=== PATIENT | female | born 1950 | race Caucasian/White ===

== ENCOUNTER 2016-07-29 11:49 | Emergency (ER) | payer MEDICARE ==
[2016-07-29 11:58] VITALS: BMI 27.4
[2016-07-29 11:59] VITALS: TEMP 98.7; O2SAT 100
--- NOTE | 2016-07-29 12:09 | ED PDOC ---
Arrival/HPI - General Historian: Patient <Chuck Cardoza - Last Filed: 07/29/16 14:23> <Candelario Weiner - Last Filed: 07/29/16 14:40> - General Chief Complaint: Trauma Time Seen by Provider: 07/29/16 11:57 - History of Present Illness Narrative History of Present Illness (Text): 07/29/16 12:07 This is a 66 yo F with PMH of DM, HTN and HLD that presents with minor head trauma s/p a mechanical fall. She says she was walking in a [place] when she tripped on the side walk and fell forward, landing on her hands and hitting her head. No LOC, no antiplatelet or anticoagulants, no residual dizziness, visual changes or focal deficits. Has no other complaints. (Chuck Cardoza) Past Medical History - Provider Review Nursing Documentation Reviewed: Yes - Cardiac Hx Hypertension: Yes - Pulmonary Hx Tuberculosis: No - Neurological HX Cerebrovascular Accident: No Hx Seizures: No - Hematological/Oncological Hx Cancer: No - Musculoskeletal/Rheumatological Hx Musculoskeletal Disorders: Yes - Genitourinary/Gynecological Hx Sexually Transmitted Diseases: No - Psychiatric Hx Depression: Yes Hx Emotional Abuse: No Hx Physical Abuse: No Hx Substance Use: No - Past Surgical History Past Surgical History: Non-Contributing - Anesthesia Hx Anesthesia Reactions: No Hx Malignant Hyperthermia: No - Suicidal Assessment Feels Threatened In Home Enviroment: No <Chuck Cardoza - Last Filed: 07/29/16 14:23> Family/Social History - Physician Review Nursing Documentation Reviewed: Yes Family/Social History: No Known Family HX Hx Alcohol Use: No Hx Substance Use: No <Chuck Cardoza - Last Filed: 07/29/16 14:23> Allergies/Home Meds <Chuck Cardoza - Last Filed: 07/29/16 14:23> <Candelario Weinre - Last Filed: 07/29/16 14:40> Allergies/Adverse Reactions: Allergies No Known Allergies Allergy (Verified 11/26/12 07:06) Home Medications: Home Meds Medication Instructions Recorded Confirmed Borage Seed Oil/Eicosapentae 1,200 mg PO DAILY 11/26/12 06/05/16 [Nature's Blend Flaxseed, Fish & Borage Oils] Calcium Carbonate/Vitamin D3 1 tab PO DAILY 11/26/12 06/05/16 [Calcium with D3 600 mg-400 Iu] Cholecalciferol [Vitamin D3] 1,000 iu PO DAILY 11/26/12 06/05/16 Ezetimibe/Simvastatin [Vytorin 10 1 tab PO DAILY 11/26/12 06/05/16 mg-40 mg] Alprazolam [Xanax] 0.5 mg PO BID 07/16/13 06/05/16 Bupropion HCl [Bupropion HCl Xl] 150 mg PO DAILY 07/16/13 06/05/16 Glyburide [Glyburide] 5 mg PO BID 07/16/13 06/05/16 Metformin HCl [Metformin HCl] 1,000 mg PO BID 07/16/13 06/05/16 Olanzapine/Fluoxetine HCl [Symbyax 1 cap PO HS 07/16/13 06/05/16 25 mg-6 mg] Temazepam [Restoril] 30 mg PO HS 07/16/13 06/05/16 Review of Systems - Review of Systems Constitutional: Normal Eyes: Normal. absent: Vision Changes, Eye Pain ENT: Normal. absent: Tinnitus Respiratory: Normal. absent: SOB, Cough Cardiovascular: Normal. absent: Chest Pain, Palpitations Gastrointestinal: Normal. absent: Abdominal Pain, Nausea, Vomiting Genitourinary Female: Normal Musculoskeletal: Other (hand pain) Skin: Laceration Neurological: Normal. absent: Headache, Dizziness, Focal Weakness, Gait Changes , Speech Changes, Disequilibrium Endocrine: Normal Hemo/Lymphatic: Normal Psychiatric: Normal <Chuck Cardoza - Last Filed: 07/29/16 14:23> Physical Exam Vital Signs Reviewed: Yes Temperature: Afebrile Blood Pressure: Normal Pulse: Tachycardic Respiratory Rate: Normal Appearance: Positive for: Non-Toxic, Comfortable Pain Distress: Mild Mental Status: Positive for: Alert and Oriented X 3 - Systems Exam Head: Present: Laceration (over left eye, 2 cm) Pupils: Present: PERRL Extroacular Muscles: Present: EOMI Neck: Present: Normal Range of Motion. No: MIDLINE TENDERNESS Respiratory/Chest: Present: Clear to Auscultation, Good Air Exchange Cardiovascular: Present: Regular Rate and Rhythm, Normal S1, S2 Abdomen: Present: Normal Bowel Sounds. No: Tenderness, Distention Upper Extremity: Present: Other (tenderness of right thenar eminence ) Lower Extremity: Present: NORMAL PULSES, Neurovascularly Intact Neurological: Present: Speech Normal, Motor Func Grossly Intact Skin: Present: Warm, Dry Psychiatric: Present: Alert, Oriented x 3 <Chuck Cardoza - Last Filed: 07/29/16 14:23> Medical Decision Making <Chuck Cardoza - Last Filed: 07/29/16 14:23> <Candelario Weiner - Last Filed: 07/29/16 14:40> ED Course and Treatment: 07/29/16 12:15 66 yo with laceration over left eye and tenderness over right thenar eminence s/ p mechanical fall Plan: - CT head and maxilofacial - Xray of right hand - Tylenol - Tdap - Reassess and disposition 07/29/16 13:31 Wound/laceration repair to left eyebrow. Sterile procedure, 5-0 prolene, simple interrupted with local anesthesia. No complications and pt tolerated procedure well. Bacitracin dressings applied. Instructed to have stitches taken out in 7 days. 07/29/16 13:51 CT head and maxilofacial - negative for any bleed or fracture. 07/29/16 14:23 Hand x-ray - no apparent fractures Discussed results with pt. Instructed pt to follow up with PMD for suture removal in 7-10 days and to return to ED if not able to see PMD. Pt stable and comfortable with discharge home and f/u (Chuck Cardoza) Patient seen and examined with resident. Came up with treatment and disposition plan with resident. The patient is a 66 year old female who comes to the emergency department for evaluation after a mechanical fall. Patient tripped and fell forward hitting her head. Additional HPI details as noted by the resident. On physical examination, the patient is a 2cm laceration over her heft eye, tenderness over the right thenar eminence but has no focal neurological deficits. Maxillofacial CT ordered to rule out any fractures. Head CT ordered to rule out any intracranial hemorrhage. Right hand X-ray to rule out fracture. Patient given TDAP vaccine and Tylenol. Laceration was repaired by resident, see procedure note for additional information. Head CT shows a small right parietal scalp hematoma. Maxillofacial CT shows no acute maxillofacial or orbital fracture. Right hand X-ray negative for fracture. On reevaluation the patient feels better and is in no acute distress. Results and plan were discussed with the patient, who expresses understanding. Patient given the opportunity to ask question, all questions were answered and there is agreement with the plan to discharge the patient home. Patient is stable for discharge. Patient was instructed to follow up with PMD for suture removal or return if symptoms persist/worsen or new concerning symptoms arise. (Candelario Weiner) - RAD Interpretation Radiology Orders: 07/29/16 12:16 HEAD W/O CONTRAST [CT] Stat 07/29/16 12:17 MAXILLOFACIAL W/O CONTRAST [CT] Stat 07/29/16 13:35 HAND RIGHT 3 VIEWS [RAD] Stat - Medication Orders Current Medication Orders: Discontinued Medications Acetaminophen (Tylenol 325mg Tab) 650 mg PO STAT STA Stop: 07/29/16 12:18 Last Admin: 07/29/16 12:30 Dose: 650 mg Lidocaine HCl (Lidocaine 1% (20ml)) Confirm Administered Dose 20 ml .ROUTE .STK- MED ONE Stop: 07/29/16 13:06 Last Admin: 07/29/16 13:23 Dose: Tetanus/Reduced Diphtheria/Acell Pertussis (Boostrix Vaccine Inj) 0.5 ml IM .ONCE ONE Stop: 07/29/16 12:18 Last Admin: 07/29/16 12:33 Dose: 0.5 ml Procedure: Wound Repair - Time Performed Time Performed: 13:29 - Time Out Time Out: Side verified, Site verified, Sterile procedures obs. - Consent Obtained Consent obtained: Verbal - Performed by Performed by: Mid-level Provider - Indications Indication(s):: Laceration - Location Location:: Left, Eyebrow Shape:: Linear Dimensions Length cm: 2 Dimensions width cm: .25 Depth:: Epidermis - Anesthetic Technique Anesthetic Technique: Local Local/Regional Anesthetic:: Lidocaine 1% - Debris Debris:: None - Irrigated Irrigated with ml of normal saline: 100 - Complexity Complexity:: Simple (one layer) - Wound repair method Sutures:: # (3), Size (3-0), Type (prolene), Technique (simple interrupted) - Complications Complications: none - Patient tolerated procedure Patient Tolerated Procedure:: Well <Chuck Cadroza - Last Filed: 07/29/16 14:23> <Chuck Cardoza - Last Filed: 07/29/16 14:23> - PA / LEGAL COORDINATOR / Resident Statement / has reviewed & agrees with the documentation as recorded. MD/DO has examined the patient and agrees with the treatment plan. - Scribe Statement The provider has reviewed the documentation as recorded by the Scribe <Candelario Weiner - Last Filed: 07/29/16 14:40> - Scribe Statement Elinorjewell Hernandez Provider Scribe Attestation: All medical record entries made by the Scribe were at my direction and personally dictated by me. I have reviewed the chart and agree that the record accurately reflects my personal performance of the history, physical exam, medical decision making, and the department course for this patient. I have also personally directed, reviewed, and agree with the discharge instructions and disposition. (Candelario Weiner) Disposition/Present on Arrival - Present on Arrival Any Indicators Present on Arrival: Yes History of DVT/PE: No History of Uncontrolled Diabetes: Yes Urinary Catheter: No History Surgical Site Infection Following: None - Disposition Have Diagnosis and Disposition been Completed?: Yes Disposition Time: 14:27 Patient Plan: Discharge <Chuck Cardoza - Last Filed: 07/29/16 14:23> <Candelario Weiner - Last Filed: 07/29/16 14:40> - Disposition Diagnosis: Minor trauma, Laceration Disposition: HOME/ ROUTINE Patient Problems: Current Active Problems Problem Status Onset Laceration Acute Minor trauma Acute Condition: IMPROVED Discharge Instructions (ExitCare): Laceration (ED) Additional Instructions: You were evaluated for minor head trauma. Follow up with your primary care physician in 7 days for suture removal or return to ED if not bale to see PMD. Return to ED with any new or worsening symptoms. Referrals: Franny Shook MD [Primary Care Provider] - Follow up with primary
[2016-07-29] MEDS ORDERED: TDAP Vaccine 0.5 mL Syr IM ONE (12:17)
[2016-07-29] MEDS ORDERED: Lidocaine 1% Inj (20ml) ONE (13:05)
--- NOTE | 2016-07-29 13:05 | CT ---
PROCEDURE: CT HEAD WITHOUT CONTRAST. HISTORY: Mechanical fall COMPARISON: None available. TECHNIQUE: Axial computed tomography images were obtained through the head/brain without intravenous contrast. Radiation dose: Total exam DLP = 688.94 mGy-cm. This CT exam was performed using one or more of the following dose reduction techniques: Automated exposure control, adjustment of the mA and/or kV according to patient size, and/or use of iterative reconstruction technique. FINDINGS: HEMORRHAGE: No intracranial hemorrhage. BRAIN: Vernon-white matter differentiation is preserved. There is no mass, mass effect or abnormal extra-axial fluid collection. VENTRICLES: The ventricles are normal in size, shape and configuration. CALVARIUM: There is no calvarial fracture. There is a small right parietal scalp hematoma. Small fat density lesion in the left frontal scalp may represent a subcutaneous lipoma or sebaceous cyst. PARANASAL SINUSES: Unremarkable as visualized. No significant inflammatory changes. MASTOID AIR CELLS: Unremarkable as visualized. No inflammatory changes. OTHER FINDINGS: None. IMPRESSION: No acute intracranial abnormality. Small right parietal scalp hematoma.
--- NOTE | 2016-07-29 13:11 | CT ---
PROCEDURE: CT MAXILLOFACIAL BONES WITHOUT CONTRAST HISTORY: Swelling to left side of face s/p mechanical fall COMPARISON: None TECHNIQUE: Contiguous axial CT images of the maxillofacial bones were obtained. Coronal and sagittal reformats were generated. Radiation dose: Total exam DLP = 706.41 mGy-cm. This CT exam was performed using one or more of the following dose reduction techniques: Automated exposure control, adjustment of the mA and/or kV according to patient size, and/or use of iterative reconstruction technique. FINDINGS: NASAL BONES: The nasal bones are intact. ORBITS: No acute fracture. The globes are symmetric and within normal limits. PARANASAL SINUSES/ MASTOIDS: There is mild mucosal thickening in the maxillary sinuses. The remaining included paranasal sinuses are predominantly clear. The mastoid air cells are clear. MAXILLA: No acute fracture. MANDIBLE/ TEMPOROMANDIBULAR JOINTS: The mandible is within normal limits without evidence of fracture or bone destruction. The temporomandibular joints are normally located. SKULL BASE: Unremarkable. TEMPORAL BONES: Middle ears and mastoid grossly unremarkable. OTHER FINDINGS: None. IMPRESSION: No acute maxillofacial or orbital fracture.
[2016-07-29 14:02] VITALS: RESP 18
[2016-07-29 14:36] VITALS: BP 116/75; PULSE 89
--- NOTE | 2016-07-29 14:40 | RAD ---
PROCEDURE: Right Hand Radiographs. HISTORY: minor trauma, hand pain COMPARISON: None. FINDINGS: BONES: There is no acute fracture or bone destruction. Bone alignment and mineralization are normal. JOINTS: Normal. No osteoarthritic changes. SOFT TISSUES: Normal. OTHER FINDINGS: None. IMPRESSION: No acute fracture or dislocation.
== END 2016-07-29 14:50 | disposition home or self-care (01) ==
LOC: ED 11:49
DX: S01.112A Laceration without foreign body of left eyelid and periocular area, initial encounter (principal); W01.0XXA Fall on same level from slipping, tripping and stumbling without subsequent striking against object, initial encounter; Y92.480 Sidewalk as the place of occurrence of the external cause; Z23 Encounter for immunization

== ENCOUNTER 2016-08-06 11:26 | Emergency (ER) | payer MEDICARE ==
[2016-08-06 11:26] VITALS: BMI 27.4
[2016-08-06 11:32] VITALS: BP 112/73; PULSE 84; RESP 16; TEMP 98.1; O2SAT 97
--- NOTE | 2016-08-06 11:33 | ED PDOC ---
Arrival/HPI - General Time Seen by Provider: 08/06/16 11:27 Historian: Patient - History of Present Illness Narrative History of Present Illness (Text): 08/06/16 11:30 66 y/o female, here for the suture removal from the left eyebrow s/p sutured about 8 days ago. Wound healing well and dry, no fever or chills, no headache or night sweat, no dizziness, no other medical or psychological complaints. Past Medical History - Provider Review Nursing Documentation Reviewed: Yes - Cardiac Hx Hypertension: Yes - Pulmonary Hx Tuberculosis: No - Neurological HX Cerebrovascular Accident: No Hx Seizures: No - Hematological/Oncological Hx Cancer: No - Musculoskeletal/Rheumatological Hx Musculoskeletal Disorders: Yes - Genitourinary/Gynecological Hx Sexually Transmitted Diseases: No - Psychiatric Hx Depression: Yes Hx Emotional Abuse: No Hx Physical Abuse: No Hx Substance Use: No - Past Surgical History Past Surgical History: Non-Contributing - Anesthesia Hx Anesthesia Reactions: No Hx Malignant Hyperthermia: No - Suicidal Assessment Feels Threatened In Home Enviroment: No Family/Social History - Physician Review Nursing Documentation Reviewed: Yes Family/Social History: Unknown Family HX Smoking Status: Never Smoked Hx Alcohol Use: No Hx Substance Use: No Allergies/Home Meds Allergies/Adverse Reactions: Allergies No Known Allergies Allergy (Verified 08/06/16 11:29) Home Medications: Home Meds Medication Instructions Recorded Confirmed Borage Seed Oil/Eicosapentae 1,200 mg PO DAILY 11/26/12 06/05/16 [Nature's Blend Flaxseed, Fish & Borage Oils] Calcium Carbonate/Vitamin D3 1 tab PO DAILY 11/26/12 06/05/16 [Calcium with D3 600 mg-400 Iu] Cholecalciferol [Vitamin D3] 1,000 iu PO DAILY 11/26/12 06/05/16 Ezetimibe/Simvastatin [Vytorin 10 1 tab PO DAILY 11/26/12 06/05/16 mg-40 mg] Alprazolam [Xanax] 0.5 mg PO BID 07/16/13 06/05/16 Bupropion HCl [Bupropion HCl Xl] 150 mg PO DAILY 07/16/13 06/05/16 Glyburide [Glyburide] 5 mg PO BID 07/16/13 06/05/16 Metformin HCl [Metformin HCl] 1,000 mg PO BID 07/16/13 06/05/16 Olanzapine/Fluoxetine HCl [Symbyax 1 cap PO HS 07/16/13 06/05/16 25 mg-6 mg] Temazepam [Restoril] 30 mg PO HS 07/16/13 06/05/16 Review of Systems - Review of Systems Constitutional: absent: Fatigue, Fevers Eyes: absent: Vision Changes ENT: absent: Hearing Changes Respiratory: absent: SOB, Cough Cardiovascular: absent: Chest Pain Gastrointestinal: absent: Abdominal Pain, Nausea, Vomiting Skin: Other (suture wound). absent: Rash, Laceration, Abscess, Ulcer, Cellulitis Physical Exam Temperature: Afebrile Appearance: Positive for: Well-Appearing, Non-Toxic, Comfortable Pain Distress: None Mental Status: Positive for: Alert and Oriented X 3 - Systems Exam Head: Present: Atraumatic, Normocephalic Pupils: Present: PERRL Pharnyx: Present: Normal. No: ERYTHEMA, EXUDATE Respiratory/Chest: Present: Clear to Auscultation, Good Air Exchange. No: Respiratory Distress, Accessory Muscle Use Cardiovascular: Present: Regular Rate and Rhythm, Normal S1, S2 Abdomen: Present: Normal Bowel Sounds. No: Tenderness, Distention Neurological: Present: GCS=15, Speech Normal Skin: Present: Warm, Dry, Normal Color, Other (Lt. eyebow visible approx. 1.5cm with 3 sutures of ethelene sutuers, no cellulitis or streaking, no ulcers. ). No: Rashes Medical Decision Making ED Course and Treatment: 08/06/16 11:32 -3 sutures removed with success, no other suture noted, wound healing well and dry. -Discharge home with education on follow up with your own pmd within 2 days, return to the ER for any new or worsening signs or symptoms. - PA / ADMINISTRATIVE SUPPORT CLERK / Resident Statement MD/DO has reviewed & agrees with the documentation as recorded. Disposition/Present on Arrival - Present on Arrival Any Indicators Present on Arrival: No History of DVT/PE: No History of Uncontrolled Diabetes: Yes Urinary Catheter: No History of Decub. Ulcer: No History Surgical Site Infection Following: None - Disposition Have Diagnosis and Disposition been Completed?: Yes Diagnosis: Visit for suture removal Disposition: HOME/ ROUTINE Disposition Time: 11:33 Patient Plan: Discharge Condition: GOOD Additional Instructions: Discharge home with education on follow up with your own pmd within 2 days, return to the ER for any new or worsening signs or symptoms. Referrals: [facility] at [facility] [place] [Outside] - Follow up with primary Forms: WORK NOTE
== END 2016-08-06 11:40 | disposition home or self-care (01) ==
LOC: ED 11:26
DX: Z48.02 Encounter for removal of sutures (principal)

== ENCOUNTER 2017-03-01 15:47 | Observation (INO) | payer MEDICARE, OTHER ==
[2017-03-01 17:45] LABS: ALB/GLOB RATIO 1.3 (1.1-1.8); ALBUMIN 4.3 g/dL (3.0-4.8); ALT/SGPT 39 U/L (7-56); AST/SGOT 24 U/L (14-36); BASO # 0.03 K/mm3 (0.0-2.0); BASO % 0.5 % (0.0-3.0); BLOOD UREA NITROGEN 18 mg/dL (7-21); CALCIUM 10.4 mg/dL (8.4-10.5); EOS % 0.3 % (1.5-5.0); GFR AFRICAN-AMERICAN > 60; GFR NON-AFRICAN AMERICAN 55; GRAN # 3.22 (1.4-6.5); GRAN % 50.4 % (50.0-68.0); HEMOGLOBIN 14.7 g/dL (12.0-16.0); LIPASE 56 U/L (23-300); LYMPH # 2.6 (1.2-3.4); LYMPH % 41.3 % (22.0-35.0); MEAN CELL VOLUME 90.2 fl (80.0-105.0); MEAN CORPUSCULAR HEMOGLOBIN 29.5 pg (25.0-35.0); MEAN CORPUSCULAR HGB CONC 32.7 g/dl (31.0-37.0); MONO # 0.5 (0.1-0.6); MONO % 7.5 % (1.0-6.0); RBC 4.98 10^6/uL (3.5-6.1); RED CELL DISTRIBUTION WIDTH 13.3 % (11.5-14.5); WHITE BLOOD COUNT 6.4 10^3/ul (4.5-11.0)
[2017-03-01 17:56] LABS: TROPONIN I < 0.01 ng/mL
[2017-03-01 18:11] LABS: PH,URINE 5.5 (4.7-8.0); URINE BILIRUBIN NEGATIVE (NEGATIVE); URINE BLOOD TRACE-INTACT (NEGATIVE); URINE GLUCOSE (UA) >=1000 mg/dL (NEGATIVE); URINE LEUKOCYTE ESTERASE SMALL Leu/uL (NEGATIVE); URINE NITRATE POSITIVE (NEGATIVE); URINE PROTEIN NEGATIVE mg/dL (<30 mg/dL); URINE UROBILINOGEN 0.2 E.U./dL (<1 E.U./dL)
[2017-03-01 18:14] LABS: URINE APPEARANCE CLOUDY (CLEAR); URINE COLOR LIGHT YELLOW (YELLOW)
[2017-03-01 18:15] LABS: PROTHROMBIN TIME 12.1 SECONDS (9.4-12.5)
[2017-03-01 18:16] LABS: INR 1.06 (0.93-1.08); PARTIAL THROMBOPLASTIN TIME 27.3 Seconds (25.1-36.5)
[2017-03-01 18:58] LABS: URINE WBC 25 - 30 /hpf (0-6)
[2017-03-01 18:59] LABS: URINE BACTERIA MANY (NEG)
--- NOTE | 2017-03-01 19:11 | CT ---
EXAM: CT Head Without Intravenous Contrast EXAM DATE/TIME: 03/01/2017 4:38 PM CLINICAL HISTORY: The patient age is 67 years old and is female; Signs and symptoms; Dizziness Facility exam id and description: Ct heads head w/o contrast TECHNIQUE: Axial computed tomography images of the head/brain without intravenous contrast. All CT scans at this facility use one or more dose reduction techniques, viz.: automated exposure control; ma/kV adjustment per patient size (including targeted exams where dose is matched to indication; i.e. head); or iterative reconstruction technique. Coronal and sagittal reformatted images were created and reviewed. COMPARISON: CT - HEAD W/O CONTRAST 2016-07-29 12:32 FINDINGS: Brain: The white-freeman differentiation is preserved demonstrating no acute territorial type infarct. There is mild prominence of the ventricles and sulci, compatible with atrophy. No acute intracranial hemorrhage is seen. Midline shift: There is no midline shift. Ventricles: See above. Bones/joints: The calvarium demonstrates no evidence for a depressed fracture. Soft tissues: There is a subcentimeter loculation of fat or lipoma within the left frontal scalp Vasculature: There is atherosclerotic calcification of the cavernous internal carotid arteries. Sinuses: There is a dejon bullosa branch of the left middle nasal turbinate. There is mild mucosal thickening of the right sphenoid sinus. A mucus retention cyst or polyp is identified within a left posterior ethmoid air cell. Mastoid air cells: No mastoid effusion. Orbits: There is bilateral proptosis. IMPRESSION: 1. No acute intracranial hemorrhage or acute territorial type infarct. 2. Mild atrophy. 3. Additional CT findings described above.
--- NOTE | 2017-03-01 20:49 | ED PDOC ---
Arrival/HPI - General Chief Complaint: Trauma Time Seen by Provider: 03/01/17 16:37 Historian: Patient - History of Present Illness Narrative History of Present Illness (Text): 03/01/17 20:43 67-year-old female presents today with frequent falls complaining of dizziness and weakness and feeling as if she is going to pass out. Patient states she lives alone and does not feel comfortable being at home. Patient states every time she falls if she is not in the view of someone she is unable to get up and she is afraid that something bad is going to happen. She denies headache at present time. Patient denies abdominal pain. Denies nausea or vomiting. Denies chest pain or shortness of breath. Denies urinary symptoms. Denies bladder or bowel incontinence. Denies arthralgias. No other complaints Past Medical History - Provider Review Nursing Documentation Reviewed: Yes - Travel History Have you recently traveled outside [place] w/in the past 3 mons?: No - Infectious Disease Hx of Infectious Diseases: None - Reproductive Menopause: Yes - Cardiac Hx Hypertension: Yes - Pulmonary Hx Tuberculosis: No - Neurological HX Cerebrovascular Accident: No Hx Seizures: No - Endocrine/Metabolic Hx Diabetes Mellitus Type 2: Yes - Hematological/Oncological Hx Cancer: No - Musculoskeletal/Rheumatological Hx Musculoskeletal Disorders: Yes - Genitourinary/Gynecological Hx Sexually Transmitted Diseases: No - Psychiatric Hx Depression: Yes Hx Emotional Abuse: No Hx Physical Abuse: No Hx Substance Use: No - Past Surgical History Past Surgical History: Non-Contributing - Anesthesia Hx Anesthesia Reactions: No Hx Malignant Hyperthermia: No - Suicidal Assessment Feels Threatened In Home Enviroment: No Family/Social History - Physician Review Nursing Documentation Reviewed: Yes Family/Social History: Unknown Family HX Smoking Status: Never Smoked Hx Alcohol Use: No Hx Substance Use: No Allergies/Home Meds Allergies/Adverse Reactions: Allergies No Known Allergies Allergy (Verified 08/06/16 11:29) Home Medications: Home Meds Medication Instructions Recorded Confirmed Metformin HCl [Metformin HCl] 1,000 mg PO BID 07/16/13 03/01/17 Canagliflozin [Invokana] 300 mg PO DAILY 03/01/17 03/01/17 Carvedilol [Coreg] 12.5 mg PO BID 03/01/17 03/01/17 Dulaglutide [Trulicity] 1.5 mg SC QWK 03/01/17 03/01/17 Ezetimibe/Simvastatin 1 each PO DAILY 03/01/17 03/01/17 [Ezetimibe-Simvastatin 10-40 mg] Olanzapine/Fluoxetine HCl 1 cap PO HS 03/01/17 03/01/17 [Olanzapine and Fluoxetine 50 mg-12 mg] buPROPion [Bupropion HCl] 300 mg PO DAILY 03/01/17 03/01/17 Review of Systems - Review of Systems Constitutional: absent: Fatigue, Fevers Eyes: absent: Vision Changes, Photophobia, Eye Pain ENT: absent: Sinus Congestion Respiratory: absent: SOB, Cough Cardiovascular: absent: Chest Pain, Palpitations Gastrointestinal: absent: Abdominal Pain, Nausea, Vomiting Genitourinary Female: absent: Dysuria, Frequency, Hematuria, Vaginal Bleeding, Vaginal Discharge Musculoskeletal: absent: Arthralgias, Back Pain, Neck Pain Skin: absent: Rash, Pruritis Neurological: Dizziness. absent: Headache Psychiatric: absent: Anxiety, Depression, Suicidal Ideation Physical Exam Vital Signs Reviewed: Yes Vital Signs Temp Pulse Resp BP Pulse Ox 03/01/17 17:00 78 18 132/79 98 03/01/17 16:01 98.6 F 90 18 115/80 99 Temperature: Afebrile Blood Pressure: Normal Pulse: Regular Respiratory Rate: Normal Appearance: Positive for: Well-Appearing, Non-Toxic, Comfortable Pain Distress: None Mental Status: Positive for: Alert and Oriented X 3 Finger Stick Blood Glucose: 133 - Systems Exam Head: Present: Atraumatic Pupils: Present: PERRL Extroacular Muscles: Present: EOMI Mouth: Present: Moist Mucous Membranes Neck: Present: Normal Range of Motion, Trachea Midline. No: MIDLINE TENDERNESS , Paraspinal Tenderness Respiratory/Chest: Present: Clear to Auscultation, Good Air Exchange. No: Respiratory Distress, Accessory Muscle Use Cardiovascular: Present: Regular Rate and Rhythm, Normal S1, S2. No: Murmurs Abdomen: Present: Normal Bowel Sounds. No: Tenderness, Distention, Peritoneal Signs, Rebound, Guarding Back: Present: Normal Inspection. No: Midline Tenderness, Paraspinal Tenderness Upper Extremity: Present: Normal ROM Lower Extremity: Present: Normal ROM Neurological: Present: GCS=15, Speech Normal, Motor Func Grossly Intact, Normal Sensory Function, Normal Cerebellar Funct, Gait Normal Skin: Present: Warm, Dry, Normal Color. No: Rashes Psychiatric: Present: Alert, Oriented x 3 Medical Decision Making ED Course and Treatment: 03/01/17 20:53 67-year-old female presents today with it frequent falls dizziness and near syncope. CBC within normal limits CMP is within normal limits Troponin within normal limits EKG shows normal sinus rhythm at [address] elevations PT INR within normal limits PTT within normal limits Urinalysis: Positive nitrate positive leukocytes Patient is without neuro deficits. Complaining of frequent falls and dizziness and near syncope Case was discussed with Dr. Aceves covering for Dr. Haywood: Discussed the case in depth. He advised admitting observational status to the hospitalist Blood and urine cultures are pending Rocephin given IV Aspirin given by mouth Case was discussed with the manager medical in depth Case discussed with Dr. Junaid marroquin :accepts observational status admission to telemetry for near syncope urinary tract infection. impression;near syncope, UTI admit observational status to tele. 03/01/17 21:23 - Lab Interpretations Lab Results: 03/01/17 17:20 03/01/17 17:20 Lab Results 03/01/17 17:48: Urine Color Light yellow, Urine Appearance Cloudy, Urine pH 5.5 , Ur Specific [place] 1.015, Urine Protein Negative, Urine Glucose (UA) >=1000, Urine Ketones Negative, Urine Blood Trace-intact H, Urine Nitrate Positive H, Urine Bilirubin Negative, Urine Urobilinogen 0.2, Ur Leukocyte Esterase Small H , Urine RBC 5 - 10, Urine WBC 25 - 30, Ur Epithelial Cells 10 - 12, Urine Bacteria Many, Urine Other Fiber 03/01/17 17:20: WBC 6.4, RBC 4.98, Hgb 14.7, Hct 44.9, MCV 90.2, MCH 29.5, MCHC 32.7, RDW 13.3, Plt Count 239, MPV 10.0, Gran % 50.4, Lymph % (Auto) 41.3 H, [place] % (Auto) 7.5 H, Eos % (Auto) 0.3 L, Baso % (Auto) 0.5, Gran # 3.22, Lymph # 2.6, [place] # 0.5, Eos # 0.0, Baso # 0.03 03/01/17 17:20: Sodium 141, Potassium 4.3, Chloride 101, Carbon Dioxide 27, Anion Gap 17, BUN 18, Creatinine 1.0, Est GFR ( Amer) > 60, Est GFR (Non- Af Amer) 55, Random Glucose 138 H, Calcium 10.4, Total Bilirubin 0.5, AST 24, ALT 39, Alkaline Phosphatase 78, Lactate Dehydrogenase 367, Total Creatine Kinase 78, Troponin I < 0.01, Total Protein 7.5, Albumin 4.3, Globulin 3.2, Albumin/Globulin Ratio 1.3, Lipase 56 03/01/17 17:20: PT 12.1, INR 1.06, APTT 27.3 - RAD Interpretation Radiology Orders: 03/01/17 16:38 HEAD W/O CONTRAST [CT] Stat CHEST PORTABLE [RAD] Stat Disposition/Present on Arrival - Present on Arrival Any Indicators Present on Arrival: Yes History of DVT/PE: No History of Uncontrolled Diabetes: Yes Urinary Catheter: No History of Decub. Ulcer: No History Surgical Site Infection Following: None - Disposition Have Diagnosis and Disposition been Completed?: Yes Diagnosis: Near syncope, Urinary tract infection Disposition: HOSPITALIZED Disposition Time: 20:57 Patient Plan: Observation Condition: FAIR Forms: [employer] (Icelandic)
[2017-03-01] MEDS ORDERED: cefTRIAXone 1 gm 1 GM/100 ML BAG IVPB STA (20:57)
[2017-03-01 23:09] LABS: FREE T4 1.13 ng/dL (0.78-2.19)
--- NOTE | 2017-03-01 23:50 | CP.PCM.HP ---
<Sourav Delong - Last Filed: 03/02/17 02:02> History of Present Illness - History of Present Illness History of Present Illness: Mrs. Lockwood is a 67 year old female with a past medical history significant for DM2, HLD, HTN, and depression who presents with several weeks of feeling lightheaded, dizzy and having frequent falls. Patient reports that for several weeks she has noticed that she has fallen 10-15 times, hitting her head on more than one occasion. She reports that she has fallen "a couple of times" because she either tripped or lost her balance but that most of the time she experiences the feeling of being lightheaded and dizzy prior to her falling. She denies any aggravating factors but does endorse that she suspects that it may be one of her DM medications. She reports that she takes her BS at home and that they have all been above 100. She denies any fever, chills, headache, changes in her vision, tinnitus, ear pain/discharge, rhinorrhea, epistaxis, sore throat, neck pain/stiffness, chest pain, palpitations, LE edema, SOB, cough , wheezing, hemoptysis, abdominal pain, N/V, diarrhea, constipation, melena, hematochezia, burning/pain with urination, urinary frequency, vaginal bleeding/ discharge, rashes, numbness/tingling/weakness of any extremity, recent travel or any sick contacts. PMH: DM2, HLD, HTN, and depression PSH: (1986) Family History: Father-DM2, and CAD; Mother: DM2 Social History: Denies tobacco, alcohol or illicit drug use; lives alone in second story apartment with no elevator Allergies: NKDA Home Medications: As per MAR Present on Admission - Present on Admission Any Indicators Present on Admission: No Review of Systems - Review of Systems Review of Systems: As stated in HPI, otherwise negative Past Patient History - Infectious Disease Hx of Infectious Diseases: None - Past Social History Smoking Status: Never Smoked - CARDIAC Hx Hypertension: Yes - PULMONARY Hx Tuberculosis: No - NEUROLOGICAL HX Cerebrovascular Accident: No Hx Seizures: No - ENDOCRINE/METABOLIC Hx Diabetes Mellitus Type 2: Yes - HEMATOLOGICAL/ONCOLOGICAL Hx Cancer: No - MUSCULOSKELETAL/RHEUMATOLOGICAL Hx Musculoskeletal Disorders: Yes - GENITOURINARY/GYNECOLOGICAL Hx Sexually Transmitted Disorders: No - PSYCHIATRIC Hx Depression: Yes Hx Emotional Abuse: No Hx Physical Abuse: No Hx Substance Use: No - SURGICAL HISTORY Hx Surgeries: Yes - ANESTHESIA Hx Anesthesia Reactions: No Hx Malignant Hyperthermia: No Meds Allergies/Adverse Reactions: Allergies Allergy/AdvReac Type Severity Reaction Status Date / Time No Known Allergies Allergy Verified 03/02/17 16:06 Physical Exam - Constitutional Appears: Non-toxic, No Acute Distress - Head Exam Head Exam: ATRAUMATIC, NORMAL INSPECTION, NORMOCEPHALIC - Eye Exam Eye Exam: EOMI, Normal appearance, PERRL. absent: Conjunctival injection, Nystagmus, Periorbital swelling, Periorbital tenderness, Scleral icterus Pupil Exam: NORMAL ACCOMODATION, PERRL. absent: Fixed, Irregular, Miosis, Mydriatic, Unequal - ENT Exam ENT Exam: Mucous Membranes Moist, Normal Exam, Normal External Ear Exam, Normal Oropharynx. absent: Mucous Membranes Dry Additional comments: [place]-Hallpike Maneuver negative - Neck Exam Neck exam: Positive for: Full Rom, Normal Inspection. Negative for: Lymphadenopathy, Meningismus, Tenderness, Thyromegaly - Respiratory Exam Respiratory Exam: Clear to Auscultation Bilateral, NORMAL BREATHING PATTERN. absent: Accessory Muscle Use, Chest Wall Tenderness, Decreased Breath Sounds, Prolonged Expiratory Phase, Rales, Rhonchi, Wheezes, Respiratory Distress, Stridor - Cardiovascular Exam Cardiovascular Exam: REGULAR RHYTHM, RRR, +S1, +S2. absent: Bradycardia, Tachycardia, Clicks, Diastolic murmur, Gallop, Irregular Rhythm, JVD, Rubs, +S4 , Systolic Murmur - GI/Abdominal Exam GI & Abdominal Exam: Normal Bowel Sounds, Soft. absent: Bruit, Diminished Bowel Sounds, Distended, Firm, Guarding, Hernia, Hyperactive Bowel Sounds, Hypoactive Bowel Sounds, Mass, Organomegaly, Pulsatile Mass, Rebound, Rigid, Tenderness - Extremities Exam Extremities exam: Positive for: full ROM, normal capillary refill, normal inspection, pedal pulses present. Negative for: calf tenderness, joint swelling , pedal edema, tenderness - Back Exam Back exam: FULL ROM, NORMAL INSPECTION. absent: CVA tenderness (L), CVA tenderness (R), muscle spasm, paraspinal tenderness, rash noted, tenderness, vertebral tenderness - Neurological Exam Neurological exam: Alert, CN II-XII Intact, Oriented x3 - Psychiatric Exam Psychiatric exam: Normal Affect, Normal Mood - Skin Skin Exam: Dry, Intact, Normal Color, Warm Results - Vital Signs Recent Vital Signs: Last Vital Signs Temp 98.6 F 03/01/17 16:01 Pulse 80 03/01/17 22:38 Resp 18 03/01/17 22:38 BP 101/59 L 03/01/17 22:38 Pulse Ox 98 03/01/17 22:38 - Labs Result Diagrams: 03/01/17 17:20 03/01/17 17:20 Labs: Laboratory Results - last 24 hr 03/01/17 22:34 POC Glucose (mg/dL) 165 H Assessment & Plan - Assessment and Plan (Free Text) Assessment: 67 year old female with a past medical history significant for DM2, HLD, HTN, and depression who presents with several weeks of feeling lightheaded, dizzy and having frequent falls. Patient had CT head done in ED that showed no acute abnormalities but was found to have a UTI on UA with positive urine nitrate, LE , WBC and bacteria. Plan: 1. Frequent Falls with dizziness and lightheadedness -CT Head was negative for any acute processes -[place]-Hallpike Maneuver negative -EKG showing NSR at 81bpm -NS at 100mls/hr -Thyroid studies and Hemoglobin A1C pending -Carotid U/S and Echo pending -Orthostatic Vital signs pending -High fall risk precautions and OOB with assistance -PT/OT eval -SW/CM for discharge planning 2. UTI -UA positive for nitrates, LE, WBC and bacteria -Rocephin 1gm IVPB daily -ID consult 3. History of DM2 -SSI Low and Accuchecks ACHS -Heart Healthy Carbohydrate Consistent Diet 4. History of HTN -Continue home Coreg 5. History of HLD -Continue home Zetia and Lipitor GI Prophylaxis: Protonix DVT Prophylaxis: SCD's Patient seen and case discussed with attending, Dr. Riaz Smith. - Date & Time Date: 03/02/17 Time: 00:02 <Riaz Smith - Last Filed: 03/03/17 06:32> Results - Vital Signs Recent Vital Signs: Last Vital Signs Temp 98.5 F 03/03/17 03:01 Pulse 82 03/03/17 03:01 Resp 18 03/03/17 03:01 BP 100/63 01/09/18 03:01 Pulse Ox 98 03/03/17 03:01 - Labs Result Diagrams: 03/02/17 05:30 03/02/17 05:30 Labs: Laboratory Results - last 24 hr 03/02/17 03/02/17 03/02/17 05:30 08:46 08:46 Sodium 139 Potassium 4.2 Chloride 105 Carbon Dioxide 24 Anion Gap 15 BUN 15 Creatinine 0.7 Est GFR ( Amer) > 60 Est GFR (Non-Af Amer) > 60 POC Glucose (mg/dL) Random Glucose 131 H Hemoglobin A1c 7.0 H Calcium 9.7 Total Bilirubin 0.5 AST 30 ALT 32 Alkaline Phosphatase 70 Total Protein 6.8 Albumin 3.8 Globulin 3.1 Albumin/Globulin Ratio 1.2 Free T4 1.17 TSH 3rd Generation 1.83 03/02/17 03/02/17 03/03/17 12:16 16:56 00:14 Sodium Potassium Chloride Carbon Dioxide Anion Gap BUN Creatinine Est GFR ( Amer) Est GFR (Non-Af Amer) POC Glucose (mg/dL) 242 H 156 H 156 H Random Glucose Hemoglobin A1c Calcium Total Bilirubin AST ALT Alkaline Phosphatase Total Protein Albumin Globulin Albumin/Globulin Ratio Free T4 TSH 3rd Generation
[2017-03-02] MEDS: Insulin Reg-LOW-Coverage SC SCH ×4 (00:17→16:58)
[2017-03-02] MEDS: Sodium Chloride 0.9% 1,000 ML IV SCH ×2 (00:18→10:15)
[2017-03-02 06:05] LABS: BASO # 0.02 K/mm3 (0.0-2.0); BASO % 0.5 % (0.0-3.0); EOS % 0.7 % (1.5-5.0); GRAN # 2.39 (1.4-6.5); GRAN % 54.4 % (50.0-68.0); HEMOGLOBIN 14.2 g/dL (12.0-16.0); LYMPH # 1.6 (1.2-3.4); LYMPH % 36.9 % (22.0-35.0); MEAN CELL VOLUME 89.7 fl (80.0-105.0); MEAN CORPUSCULAR HEMOGLOBIN 29.3 pg (25.0-35.0); MEAN CORPUSCULAR HGB CONC 32.6 g/dl (31.0-37.0); MONO # 0.3 (0.1-0.6); MONO % 7.5 % (1.0-6.0); RBC 4.85 10^6/uL (3.5-6.1); RED CELL DISTRIBUTION WIDTH 13.3 % (11.5-14.5); WHITE BLOOD COUNT 4.4 10^3/ul (4.5-11.0)
[2017-03-02 07:12] LABS: ALB/GLOB RATIO 1.2 (1.1-1.8); ALBUMIN 3.8 g/dL (3.0-4.8); ALT/SGPT 32 U/L (7-56); AST/SGOT 30 U/L (14-36); BLOOD UREA NITROGEN 15 mg/dL (7-21); CALCIUM 9.7 mg/dL (8.4-10.5); GFR AFRICAN-AMERICAN > 60; GFR NON-AFRICAN AMERICAN > 60
--- NOTE | 2017-03-02 09:05 | RAD ---
HISTORY: Dizziness. COMPARISON: 07/16/2013 FINDINGS: LUNGS: No active pulmonary disease. PLEURA: No significant pleural effusion identified, no pneumothorax apparent. CARDIOVASCULAR: No radiographic findings to suggest acute or significant cardiovascular disease. OSSEOUS STRUCTURES: No significant abnormalities. VISUALIZED UPPER ABDOMEN: Normal. OTHER FINDINGS: Skin fold should not be mistaken for left pneumothorax. IMPRESSION: No active disease. BMD changes compared to the prior study
[2017-03-02 09:17] LABS: FREE T4 1.17 ng/dL (0.78-2.19)
[2017-03-02] MEDS: cefTRIAXone 1 gm 1 GM/100 ML BAG IVPB SCH (09:30)
--- NOTE | 2017-03-02 11:02 | CP.PCM.PN ---
<Jorge Luis Rojas - Last Filed: 03/02/17 17:33> Subjective - Date & Time of Evaluation Date of Evaluation: 03/02/17 Time of Evaluation: 06:00 - Subjective Subjective: Patient seen and evaluated bedside. patient denies any complaints. Patient denies fever, sore throat, lightheadedness, chest pain, shortness of breath or any other complaints. patient was hungry and wanted breakfast. Objective - Vital Signs/Intake and Output Vital Signs (last 24 hours): Temp Pulse Resp BP Pulse Ox 98.6 F 86 18 102/67 98 03/01/17 16:01 03/02/17 09:31 03/01/17 22:38 03/02/17 09:31 03/01/17 22:38 - Medications Medications: Current Medications Atorvastatin Calcium (Lipitor) 20 mg PO DAILY [facility] Last Admin: 03/02/17 09:31 Dose: 20 mg Carvedilol (Coreg) 12.5 mg PO BID [facility] Last Admin: 03/02/17 09:31 Dose: 12.5 mg Ezetimibe (Zetia) 10 mg PO DAILY [facility] Last Admin: 03/02/17 09:31 Dose: 10 mg Ceftriaxone Sodium (Rocephin 1 Gram Ivpb) 1 gm in 100 mls @ 100 mls/hr IVPB DAILY [facility] PRN Reason: Protocol Last Admin: 03/02/17 09:30 Dose: 100 mls/hr Sodium Chloride (Sodium Chloride 0.9%) 1,000 mls @ 100 mls/hr IV .Q10H [facility] Last Admin: 03/02/17 10:15 Dose: 100 mls/hr Insulin Human Regular (Humulin R Low) 0 units SC ACHS [facility] PRN Reason: Protocol Last Admin: 03/02/17 08:07 Dose: Not Given Pantoprazole Sodium (Protonix Inj) 40 mg IVP DAILY [facility] Last Admin: 03/02/17 09:31 Dose: 40 mg - Labs Labs: 03/02/17 05:30 03/02/17 05:30 PT 12.1 SECONDS (9.4-12.5) 03/01/17 17:20 INR 1.06 (0.93-1.08) 03/01/17 17:20 APTT 27.3 Seconds (25.1-36.5) 03/01/17 17:20 - Constitutional Appears: Non-toxic, No Acute Distress - Head Exam Head Exam: ATRAUMATIC, NORMAL INSPECTION, NORMOCEPHALIC - Eye Exam Eye Exam: EOMI, Normal appearance, PERRL - ENT Exam ENT Exam: Mucous Membranes Moist, Normal Exam - Neck Exam Neck Exam: Full ROM, Normal Inspection - Respiratory Exam Respiratory Exam: Clear to Ausculation Bilateral, NORMAL BREATHING PATTERN - Cardiovascular Exam Cardiovascular Exam: REGULAR RHYTHM, +S1 - GI/Abdominal Exam GI & Abdominal Exam: Soft - Extremities Exam Extremities Exam: Normal Inspection - Neurological Exam Neurological Exam: Alert, Awake, Oriented x3 Assessment and Plan - Assessment and Plan (Free Text) Assessment: 67 year old female with a past medical history significant for DM2, HLD, HTN, and depression who presents with several weeks of feeling lightheaded, dizzy and having frequent falls. Patient had CT head done in ED that showed no acute abnormalities but was found to have a UTI on UA with positive urine nitrate, LE , WBC and bacteria. Plan: Plan: 1. Frequent Falls with dizziness and lightheadedness -CT Head was negative for any acute processes -[place]-Hallpike Maneuver negative -EKG showing NSR at 81bpm -NS at 100mls/hr -TSH: 2.54 normal, A1C pending -Carotid U/S: mild smooth homogenous plaque noted at the carotid bifurcations bilaterally, bilateral 0-19 percemt proximal ICA stenoses -echo pending -Orthostatic Vital signs: lyin/67, sittin/74, standin/75: does not appear to be orthostatic in nature -High fall risk precautions and OOB with assistance -PT/OT eval -SW/CM for discharge planning 2. UTI -UA positive for nitrates, LE, WBC and bacteria -Rocephin 1gm IVPB daily -ID consult, continue rocephin pending blood cx 3. History of DM2 -SSI Low and Accuchecks ACHS -Heart Healthy Carbohydrate Consistent Diet 4. History of HTN -Continue home Coreg 5. History of HLD -Continue home Zetia and Lipitor GI Prophylaxis: Protonix DVT Prophylaxis: SCD's <Leo Martinez - Last Filed: 03/03/17 17:02> Objective - Vital Signs/Intake and Output Vital Signs (last 24 hours): Temp Pulse Resp BP Pulse Ox 97.8 F 64 18 105/63 97 03/03/17 07:30 03/03/17 11:26 03/03/17 07:30 03/03/17 11:26 03/03/17 07:30 Intake and Output: 03/03/17 03/03/17 06:59 18:59 Intake Total 800 800 Balance 800 800 - Labs Labs: 03/02/17 05:30 03/03/17 10:20 PT 12.1 SECONDS (9.4-12.5) 03/01/17 17:20 INR 1.06 (0.93-1.08) 03/01/17 17:20 APTT 27.3 Seconds (25.1-36.5) 03/01/17 17:20 Attending/Attestation - Attestation I have personally seen and examined this patient.: Yes I have fully participated in the care of the patient.: Yes I have reviewed all pertinent clinical information, including history, physical exam and plan: Yes Notes (Text): 03/03/17 16:56 Patient was seen and examined with medical donation professional. Agreed with resident assessment and plan. 67 yrs F with a PMH of DM2, HLD, HTN, and depression was admitted with H/O of fall at home, found to have UTI.Patient was having light headiness and dizziness while standing, suggestive of orthostatic hypotension.Patient symptoms did improve after IV hydration.She is afebrile and is ambulatory.She will be discharged home with oral antibiotics for UTI and will follow up with PCP.She was given education about orthostatic hypotension and how to start ambulation to decrease her risk of fall in future. Management plan was discussed in detail with patient Education was provided.
--- NOTE | 2017-03-02 11:56 | US ---
PROCEDURE: Bilateral carotid artery duplex ultrasound HISTORY: Carotid stenosis dizziness PHYSICIAN(S): Manolo Martinez MD. TECHNIQUE: Duplex sonography and color-flow Doppler were used to evaluate the carotid bifurcations and limited segments of the vertebral arteries bilaterally. FINDINGS: There is mild smooth heterogeneous plaque noted at the carotid bifurcations bilaterally. The peak systolic velocity in the proximal right internal carotid artery is 74 cm/sec. This corresponds to a 0-19 percent proximal right ICA stenosis. Normal systolic velocities are noted in the proximal right external carotid artery. There is antegrade flow in the right vertebral artery. The peak systolic velocity in the proximal left internal carotid artery is 80 cm/sec. This corresponds to a 0-19 percent proximal left ICA stenosis. Normal systolic velocities are noted in the proximal left external carotid artery. There is antegrade flow in the dominant left vertebral artery. IMPRESSION: 1. Bilateral 0-19 percent proximal ICA stenoses. 2. Antegrade flow in both vertebral arteries.
[2017-03-02] MEDS ORDERED: Insulin Regular 1 UNITS/0.01 ML ML ONE (12:28)
--- NOTE | 2017-03-02 13:42 | CP.PCM.CON ---
History of Present Illness - History of Present Illness History of Present Illness: 67 year old female with PMH of DM, dyslipidemia, HTN, depression came in to [facility] complaining of lightheadedness and dizziness for the past couple of weeks, without headache. She denies fever or chills, no nausea or vomiting, no cough or colds, no abdominal pain, no diarrhea, no dysuria but has some urinary frequency. She also denies ear pain, no tinnitus. She feels she is "off balance. " In the ED, she is noted to have pyuria and Infectious Diseases consult is requested to further evaluate and manage. Review of Systems - Review of Systems All systems: reviewed and no additional remarkable complaints except (as per HPI ) Past Patient History - Infectious Disease Hx of Infectious Diseases: None - Past Social History Smoking Status: Never Smoked - CARDIAC Hx Hypertension: Yes - PULMONARY Hx Tuberculosis: No - NEUROLOGICAL HX Cerebrovascular Accident: No Hx Seizures: No - ENDOCRINE/METABOLIC Hx Diabetes Mellitus Type 2: Yes - HEMATOLOGICAL/ONCOLOGICAL Hx Cancer: No - MUSCULOSKELETAL/RHEUMATOLOGICAL Hx Musculoskeletal Disorders: Yes - GENITOURINARY/GYNECOLOGICAL Hx Sexually Transmitted Disorders: No - PSYCHIATRIC Hx Depression: Yes Hx Emotional Abuse: No Hx Physical Abuse: No Hx Substance Use: No - SURGICAL HISTORY Hx Surgeries: Yes - ANESTHESIA Hx Anesthesia Reactions: No Hx Malignant Hyperthermia: No Meds Allergies/Adverse Reactions: Allergies Allergy/AdvReac Type Severity Reaction Status Date / Time No Known Allergies Allergy Verified 08/06/16 11:29 - Medications Medications: Current Medications Atorvastatin Calcium (Lipitor) 20 mg PO DAILY [facility] Carvedilol (Coreg) 12.5 mg PO BID [facility] Ezetimibe (Zetia) 10 mg PO DAILY [facility] Ceftriaxone Sodium (Rocephin 1 Gram Ivpb) 1 gm in 100 mls @ 100 mls/hr IVPB DAILY [facility] PRN Reason: Protocol Sodium Chloride (Sodium Chloride 0.9%) 1,000 mls @ 100 mls/hr IV .Q10H [facility] Last Admin: 03/02/17 00:18 Dose: 100 mls/hr Insulin Human Regular (Humulin R Low) 0 units SC ACHS [facility] PRN Reason: Protocol Last Admin: 03/02/17 00:17 Dose: Not Given Pantoprazole Sodium (Protonix Inj) 40 mg IVP DAILY [facility] Physical Exam - Constitutional Appears: Non-toxic - Head Exam Head Exam: NORMAL INSPECTION - ENT Exam ENT Exam: Mucous Membranes Moist - Neck Exam Neck exam: Negative for: Lymphadenopathy, Meningismus - Respiratory Exam Respiratory Exam: Decreased Breath Sounds. absent: Rales - Cardiovascular Exam Cardiovascular Exam: +S1, +S2 - GI/Abdominal Exam GI & Abdominal Exam: Soft. absent: Tenderness Results - Vital Signs Recent Vital Signs: Last Vital Signs Temp 98.6 F 03/01/17 16:01 Pulse 80 03/01/17 22:38 Resp 18 03/01/17 22:38 BP 101/59 L 03/01/17 22:38 Pulse Ox 98 03/01/17 22:38 - Labs Result Diagrams: 03/02/17 05:30 03/02/17 05:30 Labs: Laboratory Results - last 24 hr 03/01/17 03/02/17 03/02/17 22:34 05:30 05:30 WBC 4.4 L D RBC 4.85 Hgb 14.2 Hct 43.5 MCV 89.7 MCH 29.3 MCHC 32.6 RDW 13.3 Plt Count 207 MPV 10.0 Gran % 54.4 Lymph % (Auto) 36.9 H Dillon % (Auto) 7.5 H Eos % (Auto) 0.7 L Baso % (Auto) 0.5 Gran # 2.39 Lymph # 1.6 Dillon # 0.3 Eos # 0.0 Baso # 0.02 Sodium 139 Potassium 4.2 Chloride 105 Carbon Dioxide 24 Anion Gap 15 BUN 15 Creatinine 0.7 Est GFR ( Amer) > 60 Est GFR (Non-Af Amer) > 60 POC Glucose (mg/dL) 165 H Random Glucose 131 H Calcium 9.7 Total Bilirubin 0.5 AST 30 ALT 32 Alkaline Phosphatase 70 Total Protein 6.8 Albumin 3.8 Globulin 3.1 Albumin/Globulin Ratio 1.2 03/02/17 06:04 WBC RBC Hgb Hct MCV MCH MCHC RDW Plt Count MPV Gran % Lymph % (Auto) Dillon % (Auto) Eos % (Auto) Baso % (Auto) Gran # Lymph # Dillon # Eos # Baso # Sodium Potassium Chloride Carbon Dioxide Anion Gap BUN Creatinine Est GFR ( Amer) Est GFR (Non-Af Amer) POC Glucose (mg/dL) 129 H Random Glucose Calcium Total Bilirubin AST ALT Alkaline Phosphatase Total Protein Albumin Globulin Albumin/Globulin Ratio Assessment & Plan - Assessment and Plan (Free Text) Plan: Assessment R/O UTI pre-syncopal episodes, etiology to be determined DM dyslipidemia HTN depression Plan Started the patient on Rocephin pending urine cx results follow up work-up for pre-syncope will monitor clinically
--- NOTE | 2017-03-02 16:54 | CARD ---
APPROVED REPORT EKG Measurement Heart [id number] <Conclusion> Normal sinus rhythm Nonspecific T wave abnormality Abnormal ECG
[2017-03-02 20:17] VITALS: BMI 25.4
[2017-03-02] MEDS ORDERED: Influenza Vaccine 60 mcg/0.5 mL SYR (4YR UP) IM ONE (20:17)
[2017-03-02] MEDS ORDERED: Pneumococcal 23-Valent Vaccine IM ONE (20:17)
[2017-03-03] MEDS: Insulin Reg-LOW-Coverage SC SCH ×3 (00:14→12:01)
[2017-03-03] MEDS: Sodium Chloride 0.9% 1,000 ML IV SCH ×2 (00:15→01:39)
[2017-03-03 03:02] VITALS: RESP 18
[2017-03-03] MEDS ORDERED: Pantoprazole 40 mg EC Tab PO SCH (07:30)
[2017-03-03 07:48] VITALS: BP 105/63; PULSE 64; TEMP 97.8; O2SAT 97
[2017-03-03 10:46] LABS: ALB/GLOB RATIO 1.3 (1.1-1.8); ALBUMIN 3.9 g/dL (3.0-4.8); ALT/SGPT 37 U/L (7-56); AST/SGOT 39 U/L (14-36); BLOOD UREA NITROGEN 10 mg/dL (7-21); CALCIUM 9.4 mg/dL (8.4-10.5); GFR AFRICAN-AMERICAN > 60; GFR NON-AFRICAN AMERICAN > 60
--- NOTE | 2017-03-03 11:09 | CP.PCM.DIS ---
<Jorge Luis Rojas - Last Filed: 03/03/17 16:39> Provider - Provider Date of Admission: 03/01/17 22:21 Attending physician: Mike Dias MD Consults: [place] Time Spent in preparation of Discharge (in minutes): 70 Hospital Course - Lab Results Lab Results: Most Recent Lab Values WBC 4.4 10^3/ul (4.5-11.0) L D 03/02/17 05:30 RBC 4.85 10^6/uL (3.5-6.1) 03/02/17 05:30 Hgb 14.2 g/dL (12.0-16.0) 03/02/17 05:30 Hct 43.5 % (36.0-48.0) 03/02/17 05:30 MCV 89.7 fl (80.0-105.0) 03/02/17 05:30 MCH 29.3 pg (25.0-35.0) 03/02/17 05:30 MCHC 32.6 g/dl (31.0-37.0) 03/02/17 05:30 RDW 13.3 % (11.5-14.5) 03/02/17 05:30 Plt Count 207 10^3/uL (120.0-450.0) 03/02/17 05:30 MPV 10.0 fl (7.0-11.0) 03/02/17 05:30 Gran % 54.4 % (50.0-68.0) 03/02/17 05:30 Lymph % (Auto) 36.9 % (22.0-35.0) H 03/02/17 05:30 Carver % (Auto) 7.5 % (1.0-6.0) H 03/02/17 05:30 Eos % (Auto) 0.7 % (1.5-5.0) L 03/02/17 05:30 Baso % (Auto) 0.5 % (0.0-3.0) 03/02/17 05:30 Gran # 2.39 (1.4-6.5) 03/02/17 05:30 Lymph # 1.6 (1.2-3.4) 03/02/17 05:30 Carver # 0.3 (0.1-0.6) 03/02/17 05:30 Eos # 0.0 (0.0-0.7) 03/02/17 05:30 Baso # 0.02 K/mm3 (0.0-2.0) 03/02/17 05:30 PT 12.1 SECONDS (9.4-12.5) 03/01/17 17:20 INR 1.06 (0.93-1.08) 03/01/17 17:20 APTT 27.3 Seconds (25.1-36.5) 03/01/17 17:20 Sodium 137 mmol/L (132-148) 03/03/17 10:20 Potassium 4.4 mmol/L (3.6-5.0) 03/03/17 10:20 Chloride 104 mmol/L (98-107) 03/03/17 10:20 Carbon Dioxide 25 mmol/L (21-33) 03/03/17 10:20 Anion Gap 12 (10-20) 03/03/17 10:20 BUN 10 mg/dL (7-21) 03/03/17 10:20 Creatinine 0.7 mg/dl (0.7-1.2) 03/03/17 10:20 Est GFR ( Amer) > 60 03/03/17 10:20 Est GFR (Non-Af Amer) > 60 03/03/17 10:20 POC Glucose (mg/dL) 133 mg/dL (65-110) H 03/03/17 07:18 Random Glucose 261 mg/dL (70-110) H 03/03/17 10:20 Hemoglobin A1c 7.0 % (4.2-6.5) H 03/02/17 08:46 Calcium 9.4 mg/dL (8.4-10.5) 03/03/17 10:20 Total Bilirubin 0.4 mg/dL (0.2-1.3) 03/03/17 10:20 AST 39 U/L (14-36) H D 03/03/17 10:20 ALT 37 U/L (7-56) 03/03/17 10:20 Alkaline Phosphatase 68 U/L (38-126) 03/03/17 10:20 Lactate Dehydrogenase 367 U/L (333-699) 03/01/17 17:20 Total Creatine Kinase 78 U/L (35-230) 03/01/17 17:20 Troponin I < 0.01 ng/mL 03/01/17 17:20 Total Protein 6.9 g/dL (5.8-8.3) 03/03/17 10:20 Albumin 3.9 g/dL (3.0-4.8) 03/03/17 10:20 Globulin 3.0 gm/dL 03/03/17 10:20 Albumin/Globulin Ratio 1.3 (1.1-1.8) 03/03/17 10:20 Lipase 56 U/L (23-300) 03/01/17 17:20 Free T4 1.17 ng/dL (0.78-2.19) 03/02/17 08:46 TSH 3rd Generation 1.83 mIU/mL (0.46-4.68) 03/02/17 08:46 Urine Color Light yellow (YELLOW) 03/01/17 17:48 Urine Appearance Cloudy (CLEAR) 03/01/17 17:48 Urine pH 5.5 (4.7-8.0) 03/01/17 17:48 Ur Specific [place] 1.015 (1.005-1.035) 03/01/17 17:48 Urine Protein Negative mg/dL (<30 mg/dL) 03/01/17 17:48 Urine Glucose (UA) >=1000 mg/dL (NEGATIVE) 03/01/17 17:48 Urine Ketones Negative mg/dL (NEGATIVE) 03/01/17 17:48 Urine Blood Trace-intact (NEGATIVE) H 03/01/17 17:48 Urine Nitrate Positive (NEGATIVE) H 03/01/17 17:48 Urine Bilirubin Negative (NEGATIVE) 03/01/17 17:48 Urine Urobilinogen 0.2 E.U./dL (<1 E.U./dL) 03/01/17 17:48 Ur Leukocyte Esterase Small Samir/uL (NEGATIVE) H 03/01/17 17:48 Urine RBC 5 - 10 /hpf (0-2) 03/01/17 17:48 Urine WBC 25 - 30 /hpf (0-6) 03/01/17 17:48 Ur Epithelial Cells 10 - 12 /hpf (0-5) 03/01/17 17:48 Urine Bacteria Many (NEG) 03/01/17 17:48 Urine Other Fiber 03/01/17 17:48 - Hospital Course Hospital Course: 67 year old female with a past medical history significant for DM2, HLD, HTN, and depression who presents with several weeks of feeling lightheaded, dizzy and having frequent falls. Patient had CT head done in ED that showed no acute abnormalities but was found to have a UTI on UA with positive urine nitrate, LE , WBC and bacteria. PAtients homes medications were continued. EKG was done and showed NSR. Syncope workup was done including carotid dopplers, north [place], orthostatics, all which were normal She was gstarted on fluids, TSH and A1C were ordered. Patient was found to have UTI on UA and treated with rocephin. She was placed on a heart healthy diet and home medications were continued for HTN and and HLD. Patients clinical status improved, denied any lightheadedness, was able to ambulate on her own without any issues. She was discharged to home. Discharge Exam - Head Exam Head Exam: ATRAUMATIC, NORMAL INSPECTION, NORMOCEPHALIC - Eye Exam Eye Exam: EOMI, Normal appearance, PERRL Pupil Exam: NORMAL ACCOMODATION - Respiratory Exam Respiratory Exam: Clear to PA & Lateral, NORMAL BREATHING PATTERN, UNREMARKABLE - Cardiovascular Exam Cardiovascular Exam: REGULAR RHYTHM, +S1, +S2 - GI/Abdominal Exam GI & Abdominal Exam: Normal Bowel Sounds - Neurological Exam Neurological exam: Alert, CN II-XII Intact, Oriented x3 - Psychiatric Exam Psychiatric exam: Normal Affect, Normal Mood Discharge Plan - Discharge Medications Prescriptions: Ciprofloxacin HCl [Cipro] 500 mg PO BID #6 tablet - Follow Up Plan Condition: FAIR Disposition: HOME/ ROUTINE Instructions: Weakness (GEN), Near Syncope (ED) Additional Instructions: Please continue antiobiotics for 3 days, two times a day. Follow up with Primary Care Doctor. <Leo Martinez - Last Filed: 03/03/17 17:03> Provider - Provider Date of Admission: 03/01/17 22:21 Attending physician: Mike Dias MD Hospital Course - Lab Results Lab Results: Most Recent Lab Values WBC 4.4 10^3/ul (4.5-11.0) L D 03/02/17 05:30 RBC 4.85 10^6/uL (3.5-6.1) 03/02/17 05:30 Hgb 14.2 g/dL (12.0-16.0) 03/02/17 05:30 Hct 43.5 % (36.0-48.0) 03/02/17 05:30 MCV 89.7 fl (80.0-105.0) 03/02/17 05:30 MCH 29.3 pg (25.0-35.0) 03/02/17 05:30 MCHC 32.6 g/dl (31.0-37.0) 03/02/17 05:30 RDW 13.3 % (11.5-14.5) 03/02/17 05:30 Plt Count 207 10^3/uL (120.0-450.0) 03/02/17 05:30 MPV 10.0 fl (7.0-11.0) 03/02/17 05:30 Gran % 54.4 % (50.0-68.0) 03/02/17 05:30 Lymph % (Auto) 36.9 % (22.0-35.0) H 03/02/17 05:30 Carver % (Auto) 7.5 % (1.0-6.0) H 03/02/17 05:30 Eos % (Auto) 0.7 % (1.5-5.0) L 03/02/17 05:30 Baso % (Auto) 0.5 % (0.0-3.0) 03/02/17 05:30 Gran # 2.39 (1.4-6.5) 03/02/17 05:30 Lymph # 1.6 (1.2-3.4) 03/02/17 05:30 Carver # 0.3 (0.1-0.6) 03/02/17 05:30 Eos # 0.0 (0.0-0.7) 03/02/17 05:30 Baso # 0.02 K/mm3 (0.0-2.0) 03/02/17 05:30 PT 12.1 SECONDS (9.4-12.5) 03/01/17 17:20 INR 1.06 (0.93-1.08) 03/01/17 17:20 APTT 27.3 Seconds (25.1-36.5) 03/01/17 17:20 Sodium 137 mmol/L (132-148) 03/03/17 10:20 Potassium 4.4 mmol/L (3.6-5.0) 03/03/17 10:20 Chloride 104 mmol/L (98-107) 03/03/17 10:20 Carbon Dioxide 25 mmol/L (21-33) 03/03/17 10:20 Anion Gap 12 (10-20) 03/03/17 10:20 BUN 10 mg/dL (7-21) 03/03/17 10:20 Creatinine 0.7 mg/dl (0.7-1.2) 03/03/17 10:20 Est GFR ( Amer) > 60 03/03/17 10:20 Est GFR (Non-Af Amer) > 60 03/03/17 10:20 POC Glucose (mg/dL) 168 mg/dL (65-110) H 03/03/17 11:35 Random Glucose 261 mg/dL (70-110) H 03/03/17 10:20 Hemoglobin A1c 7.0 % (4.2-6.5) H 03/02/17 08:46 Calcium 9.4 mg/dL (8.4-10.5) 03/03/17 10:20 Total Bilirubin 0.4 mg/dL (0.2-1.3) 03/03/17 10:20 AST 39 U/L (14-36) H D 03/03/17 10:20 ALT 37 U/L (7-56) 03/03/17 10:20 Alkaline Phosphatase 68 U/L (38-126) 03/03/17 10:20 Lactate Dehydrogenase 367 U/L (333-699) 03/01/17 17:20 Total Creatine Kinase 78 U/L (35-230) 03/01/17 17:20 Troponin I < 0.01 ng/mL 03/01/17 17:20 Total Protein 6.9 g/dL (5.8-8.3) 03/03/17 10:20 Albumin 3.9 g/dL (3.0-4.8) 03/03/17 10:20 Globulin 3.0 gm/dL 03/03/17 10:20 Albumin/Globulin Ratio 1.3 (1.1-1.8) 03/03/17 10:20 Lipase 56 U/L (23-300) 03/01/17 17:20 Free T4 1.17 ng/dL (0.78-2.19) 03/02/17 08:46 TSH 3rd Generation 1.83 mIU/mL (0.46-4.68) 03/02/17 08:46 Urine Color Light yellow (YELLOW) 03/01/17 17:48 Urine Appearance Cloudy (CLEAR) 03/01/17 17:48 Urine pH 5.5 (4.7-8.0) 03/01/17 17:48 Ur Specific [place] 1.015 (1.005-1.035) 03/01/17 17:48 Urine Protein Negative mg/dL (<30 mg/dL) 03/01/17 17:48 Urine Glucose (UA) >=1000 mg/dL (NEGATIVE) 03/01/17 17:48 Urine Ketones Negative mg/dL (NEGATIVE) 03/01/17 17:48 Urine Blood Trace-intact (NEGATIVE) H 03/01/17 17:48 Urine Nitrate Positive (NEGATIVE) H 03/01/17 17:48 Urine Bilirubin Negative (NEGATIVE) 03/01/17 17:48 Urine Urobilinogen 0.2 E.U./dL (<1 E.U./dL) 03/01/17 17:48 Ur Leukocyte Esterase Small Samir/uL (NEGATIVE) H 03/01/17 17:48 Urine RBC 5 - 10 /hpf (0-2) 03/01/17 17:48 Urine WBC 25 - 30 /hpf (0-6) 03/01/17 17:48 Ur Epithelial Cells 10 - 12 /hpf (0-5) 03/01/17 17:48 Urine Bacteria Many (NEG) 03/01/17 17:48 Urine Other Fiber 03/01/17 17:48 Attending/Attestation - Attestation I have personally seen and examined this patient.: Yes I have fully participated in the care of the patient.: Yes I have reviewed all pertinent clinical information, including history, physical exam and plan: Yes Notes (Text): 03/03/17 17:03 Patient was seen and examined with medical record librarian. Agreed with resident assessment and plan. 67 yrs F with a PMH of DM2, HLD, HTN, and depression was admitted with H/O of fall at home, found to have UTI.Patient was having light headiness and dizziness while standing, suggestive of orthostatic hypotension.Patient symptoms did improve after IV hydration.She is afebrile and is ambulatory.She will be discharged home with oral antibiotics for UTI and will follow up with PCP.She was given education about orthostatic hypotension and how to start ambulation to decrease her risk of fall in future. Management plan was discussed in detail with patient Education was provided.
[2017-03-03] MEDS: cefTRIAXone 1 gm 1 GM/100 ML BAG IVPB SCH (11:27)
--- NOTE | 2017-03-03 15:02 | CP.PCM.PN ---
Subjective - Date & Time of Evaluation Date of Evaluation: 03/03/17 Time of Evaluation: 10:55 - Subjective Subjective: Comfortable, no fevers. Not in distress. No dizziness currently. Objective - Vital Signs/Intake and Output Vital Signs (last 24 hours): Temp Pulse Resp BP Pulse Ox 97.8 F 64 18 105/63 97 03/03/17 07:30 03/03/17 07:30 03/03/17 07:30 03/03/17 07:30 03/03/17 07:30 Intake and Output: 03/03/17 03/03/17 06:59 18:59 Intake Total 800 Balance 800 - Medications Medications: Current Medications Atorvastatin Calcium (Lipitor) 20 mg PO DAILY [facility] Last Admin: 03/02/17 09:31 Dose: 20 mg Carvedilol (Coreg) 12.5 mg PO BID [facility] Last Admin: 03/02/17 18:26 Dose: 12.5 mg Ezetimibe (Zetia) 10 mg PO DAILY [facility] Last Admin: 03/02/17 09:31 Dose: 10 mg Ceftriaxone Sodium (Rocephin 1 Gram Ivpb) 1 gm in 100 mls @ 100 mls/hr IVPB DAILY [facility] PRN Reason: Protocol Last Admin: 03/02/17 09:30 Dose: 100 mls/hr Sodium Chloride (Sodium Chloride 0.9%) 1,000 mls @ 100 mls/hr IV .Q10H [facility] Last Admin: 03/03/17 01:39 Dose: 100 mls/hr Insulin Human Regular (Humulin R Low) 0 units SC ACHS [facility] PRN Reason: Protocol Last Admin: 03/03/17 07:55 Dose: Not Given Pantoprazole Sodium (Protonix Ec Tab) 40 mg PO ACB [facility] Last Admin: 03/03/17 06:35 Dose: 40 mg - Labs Labs: 03/02/17 05:30 03/02/17 05:30 PT 12.1 SECONDS (9.4-12.5) 03/01/17 17:20 INR 1.06 (0.93-1.08) 03/01/17 17:20 APTT 27.3 Seconds (25.1-36.5) 03/01/17 17:20 - Constitutional Appears: Non-toxic - Head Exam Head Exam: NORMAL INSPECTION - Respiratory Exam Respiratory Exam: Decreased Breath Sounds - Cardiovascular Exam Cardiovascular Exam: +S1, +S2 - GI/Abdominal Exam GI & Abdominal Exam: Soft. absent: Tenderness Assessment and Plan - Assessment and Plan (Free Text) Plan: Assessment R/O UTI pre-syncopal episodes, etiology to be determined DM dyslipidemia HTN depression Plan on rocephin day 2 pending urine cx results follow up work-up for pre-syncope
--- NOTE | 2017-03-03 19:25 | CARD ---
APPROVED REPORT EXAM: Two-dimensional and M-mode echocardiogram with Doppler and color Doppler. INDICATION DIZZINESS 2D DIMENSIONS Left Atrium (2D)3.6 (1.6-4.0cm)IVSd1.1 (0.7-1.1cm) LVDd4.6 (3.9-5.9cm)PWd1.1 (0.7-1.1cm) LVDs3.4 (2.5-4.0cm)FS (%) 25.5 % LVEF (%)50.3 (>50%) M-Mode DIMENSIONS Aortic Root2.70 (2.2-3.7cm)Aortic Cusp Exc.1.70 (1.5-2.0cm) Aortic Valve AoV Peak Ftczhkix15.1cm/Evelyn Peak GR.4mmHg Mitral Valve MV E Axpygrra91.0cm/sMV A Ckufhxsu11.4cm/sE/A ratio0.6 TDI E/Lateral E'0.0E/Medial E'0.0 Tricuspid Valve TR Peak [id number]/sRAP [id number] Peak Gr.22mmHg [id number] LEFT VENTRICLE The left ventricle is normal size. There is normal left ventricular wall thickness. Left ventricle ejection fraction is borderline. There is normal LV segmental wall motion. Transmitral Doppler flow pattern is Grade I-abnormal relaxation pattern. RIGHT VENTRICLE The right ventricle is normal size. There is normal right ventricular wall thickness. The right ventricular systolic function is normal. ATRIA The left atrium size is normal. The right atrium size is normal. AORTIC VALVE The aortic valve is normal in structure. No aortic regurgitation is present. There is no aortic valvular stenosis. MITRAL VALVE The mitral valve is normal in structure. There is no mitral valve regurgitation noted. TRICUSPID VALVE There is trace tricuspid regurgitation. GREAT VESSELS The aortic root is normal in size. The IVC is normal in size and collapses >50% with inspiration. PERICARDIAL EFFUSION There is a trace loculated anterior pericardial effusion. <Conclusion> The left ventricle is normal size. There is normal left ventricular wall thickness. Left ventricle ejection fraction is borderline. There is normal LV segmental wall motion. Transmitral Doppler flow pattern is Grade I-abnormal relaxation pattern.
== END 2017-03-03 14:22 | disposition home or self-care (01) ==
LOC: ED 15:47 → ERH 22:21 → 5RNO 03-03 01:26
PROVIDERS: ADMIT Internal Medicine; ATTEND Internal Medicine
DX: I95.1 Orthostatic hypotension (principal); N39.0 Urinary tract infection, site not specified; I10 Essential (primary) hypertension; E11.9 Type 2 diabetes mellitus without complications; E78.5 Hyperlipidemia, unspecified; R29.6 Repeated falls; Z79.899 Other long term (current) drug therapy; F32.89 Other specified depressive episodes; Z82.49 Family history of ischemic heart disease and other diseases of the circulatory system; Z83.3 Family history of diabetes mellitus; Z91.81 History of falling; Z23 Encounter for immunization
CPT/HCPCS: 36415; 70450; 71045; 80053; 81001; 82550; 82948; 83036; 83615; 83690; 84439; 84443; 84484; 85025; 85610; 85730; 87040; 87086; 90674; 90732; 93005; 93306; 93880; 96365; 97161; 99285; C9113; G0008; G0009; G0378; G8978; G8979; G8980; J0696; J7040

== ENCOUNTER 2018-06-04 11:58 | Inpatient (IN) | payer MEDICARE, OTHER ==
--- NOTE | 2018-06-04 12:34 | ED PDOC ---
Arrival/HPI - General Chief Complaint: Trauma Historian: Patient - History of Present Illness Narrative History of Present Illness (Text): 06/04/18 12:17 68 year old female, with a past medical history of DM, HTN and HLD, who presents to the emergency department complaining of right ankle pain s/p mechanical fall earlier today. Patient reports she was carrying bags of groceries when she tripped over her foot and fell backwards. She denies any pain or dizziness prior to incident. She also denies twisting her ankle or hitting her head. Patient endorses pain with movement of right ankle, but denies any fever, chills, headache, chest pain, nausea, vomiting, LOC, or any other symptoms. PCP: Paula Blanton M.D Time/Duration: 24 hours Symptom Onset: Gradual Symptom Course: Unchanged Activities at Onset: Light Context: Walking Past Medical History - Provider Review Nursing Documentation Reviewed: Yes - Infectious Disease Hx of Infectious Diseases: None - Reproductive Menopause: Yes - Cardiac Hx Cardiac Disorders: Yes Hx Hypertension: Yes - Pulmonary Hx Respiratory Disorders: No Hx Tuberculosis: No - Neurological Hx Neurological Disorder: Yes HX Cerebrovascular Accident: No Hx Dizziness: Yes (NEAR SYNCOPE) Hx Seizures: No - HEENT Hx HEENT Disorder: No - Renal Hx Renal Disorder: No - Endocrine/Metabolic Hx Diabetes Mellitus Type 2: Yes - Hematological/Oncological Hx Blood Disorders: No Hx Cancer: No - Integumentary Hx Dermatological Disorder: No - Musculoskeletal/Rheumatological Hx Musculoskeletal Disorders: Yes Hx Falls: Yes (MULTIPLE FALLS) - Gastrointestinal Hx Gastrointestinal Disorders: Yes (DIVERTICULOSIS) - Genitourinary/Gynecological Hx Genitourinary Disorders: Yes (PYURIA) Hx Sexually Transmitted Diseases: No Hx Urinary Tract Infection: Yes - Psychiatric Hx Psychophysiologic Disorder: Yes Hx Depression: Yes Hx Emotional Abuse: No Hx Physical Abuse: No Hx Substance Use: No - Past Surgical History Past Surgical History: Non-Contributing - Anesthesia Hx Anesthesia Reactions: No Hx Malignant Hyperthermia: No - Suicidal Assessment Feels Threatened In Home Enviroment: No Family/Social History - Physician Review Nursing Documentation Reviewed: Yes Family/Social History: Unknown Family HX Smoking Status: Never Smoked Hx Alcohol Use: No Hx Substance Use: No Allergies/Home Meds Allergies/Adverse Reactions: Allergies No Known Allergies Allergy (Verified 06/04/18 15:29) Home Medications: Home Meds Medication Instructions Recorded Confirmed Metformin HCl 1,000 mg PO BID 07/16/13 06/04/18 Canagliflozin [Invokana] 100 mg PO DAILY 03/01/17 06/04/18 Carvedilol [Coreg] 12.5 mg PO BID 03/01/17 03/01/17 Dulaglutide [Trulicity] 1.5 mg SC QWK 03/01/17 06/04/18 Ezetimibe/Simvastatin 1 each PO DAILY 03/01/17 06/04/18 [Ezetimibe-Simvastatin 10-40 mg] buPROPion [Wellbutrin] 300 mg PO DAILY 03/01/17 06/04/18 Alprazolam [Xanax] 0.5 mg PO BID PRN 06/04/18 06/04/18 Review of Systems - Physician Review All systems were reviewed & negative as marked: Yes - Review of Systems Constitutional: absent: Fevers Respiratory: absent: SOB, Cough Cardiovascular: absent: Chest Pain Gastrointestinal: absent: Abdominal Pain, Nausea, Vomiting Musculoskeletal: Other (right ankle pain). absent: Back Pain, Neck Pain Neurological: absent: Headache, Dizziness Endocrine: absent: Diaphoresis Physical Exam Appearance: Positive for: Well-Appearing, Non-Toxic, Comfortable Pain Distress: None Mental Status: Positive for: Alert and Oriented X 3 - Systems Exam Head: Present: Atraumatic, Normocephalic Pupils: Present: PERRL Extroacular Muscles: Present: EOMI Conjunctiva: Present: Normal Mouth: Present: Moist Mucous Membranes Neck: Present: Normal Range of Motion Respiratory/Chest: Present: Clear to Auscultation, Good Air Exchange. No: Respiratory Distress, Accessory Muscle Use Cardiovascular: Present: Regular Rate and Rhythm, Normal S1, S2. No: Murmurs Abdomen: No: Tenderness, Distention, Peritoneal Signs Back: Present: Normal Inspection Upper Extremity: Present: Normal Inspection. No: Cyanosis, Edema Lower Extremity: Present: Other (No palpable achilles tendon noted to right foot. ). No: Edema Neurological: Present: GCS=15, Speech Normal Skin: Present: Warm, Dry, Normal Color. No: Rashes Psychiatric: Present: Alert, Oriented x 3, Normal Insight, Normal Concentration Medical Decision Making ED Course and Treatment: 06/04/18 12:15 Impression: 68 year old female presents to the emergency department complaining of right ankle pain s/p mechanical earlier today. Differential Diagnosis included but are not limited to: Achilles tendon rupture. Plan: -- EKG -- Labs -- Chest X-ray -- X-ray right ankle -- MRI lower extremity -- Reassess and disposition Prior Visits: Notes and results from previous visits were reviewed. Progress Notes: 06/04/18 13:08 EKG reviewed, shows: NSR at 95, normal axis and intervals. 06/04/18 13:23 Chest X-Ray reviewed by radiologist, shows: No focal consolidation. X-ray right ankle reviewed by radiologist, shows: No acute displaced fracture, dislocation, or significant joint effusion identified. 06/04/18 14:32 MRI lower extremity reviewed by radiologist, shows: Tear of the Achilles tendon as described - Scribe Statement The provider has reviewed the documentation as recorded by the Jax Catalan Provider Scribe Attestation: All medical record entries made by the Scribe were at my direction and personally dictated by me. I have reviewed the chart and agree that the record accurately reflects my personal performance of the history, physical exam, medical decision making, and the department course for this patient. I have also personally directed, reviewed, and agree with the discharge instructions and disposition. Disposition/Present on Arrival - Present on Arrival Any Indicators Present on Arrival: No History of DVT/PE: No History of Uncontrolled Diabetes: Yes Urinary Catheter: No History of Decub. Ulcer: No History Surgical Site Infection Following: None - Disposition Have Diagnosis and Disposition been Completed?: Yes Diagnosis: Achilles rupture, right Disposition: HOSPITALIZED Disposition Time: 14:00 Condition: STABLE
--- NOTE | 2018-06-04 12:59 | RAD ---
PROCEDURE: Right Ankle Radiographs. HISTORY: r/o fx COMPARISON: None available. FINDINGS: BONES: No acute displaced fracture. Calcaneal enthesophyte. JOINTS: No dislocation. SOFT TISSUES: Vascular calcifications. No evidence of radiopaque foreign body. OTHER FINDINGS: None. IMPRESSION: No acute displaced fracture, dislocation, or significant joint effusion identified. If symptoms persist or if there is clinical concern, x-ray follow-up in 7-10 days should be considered.
--- NOTE | 2018-06-04 13:08 | RAD ---
HISTORY: r/o infiltrate COMPARISON: Chest x-ray performed 03/01/17 TECHNIQUE: Chest, one view. FINDINGS: LUNGS: No focal consolidation. Please note that chest x-ray has limited sensitivity for the detection of pulmonary masses. PLEURA: No significant pleural effusion identified. No definite pneumothorax . CARDIOVASCULAR: Heart size appears top normal. No significant atherosclerotic calcification present. OSSEOUS STRUCTURES: Degenerative changes of the spine. VISUALIZED UPPER ABDOMEN: Unremarkable. OTHER FINDINGS: None. IMPRESSION: No focal consolidation.
[2018-06-04 13:31] LABS: BASO # 0.03 K/mm3 (0.0-2.0); BASO % 0.4 % (0.0-3.0); EOS % 0.5 % (1.5-5.0); HEMOGLOBIN 13.9 g/dL (12.0-16.0); LYMPH # 1.9 (1.2-3.4); LYMPH % 26.2 % (22.0-35.0); MEAN CELL VOLUME 87.3 fl (80.0-105.0); MEAN CORPUSCULAR HGB CONC 32.1 g/dl (31.0-37.0); MEAN PLATELET VOLUME 10.1 fl (7.0-11.0); MONO # 0.5 (0.1-0.6); MONO % 6.6 % (1.0-6.0); RBC 4.96 10^6/uL (3.5-6.1); WHITE BLOOD COUNT 7.3 10^3/uL (4.5-11.0)
[2018-06-04 13:33] LABS: ALB/GLOB RATIO 1.6 (1.1-1.8); ALBUMIN 4.1 g/dL (3.0-4.8); ALT/SGPT 17 U/L (7-56); AST/SGOT 22 U/L (14-36); BLOOD UREA NITROGEN 17 mg/dL (7-21); CALCIUM 9.7 mg/dL (8.4-10.5); GFR NON-AFRICAN AMERICAN > 60
[2018-06-04 13:34] LABS: INR 1.09; PARTIAL THROMBOPLASTIN TIME 28.5 Seconds (26.9-38.3); PROTHROMBIN TIME 12.1 SECONDS (9.4-12.5)
--- NOTE | 2018-06-04 14:19 | MRI ---
Date of service: 06/04/2018 PROCEDURE: MRI of the right ankle without contrast HISTORY: r/o Achilles tendon rupture COMPARISON: TECHNIQUE: MRI of the right ankle was performed in multiple planes using multiple pulse sequences. FINDINGS: There is an Achilles tendon tear. The tear measures 2 cm in length and is located 3 cm above the calcaneal insertion. There is fluid and blood in the tendon sheath. There are some thin fibers connecting the 2 components of the Achilles tendon. There is no marrow edema. The remaining ankle tendons and ligaments are intact. IMPRESSION: Tear of the Achilles tendon as described
--- NOTE | 2018-06-04 14:39 | CP.PCM.HP ---
<Anthony Wooten - Last Filed: 06/04/18 18:02> History of Present Illness - History of Present Illness History of Present Illness: PGY-1 Medicine H&P for Dr. Dias CC: Right ankle pain Patient is a 68 year old female with a past medical history significant for DM2, HLD, HTN, and depression, presenting with right ankle pain s/p mechanical fall earlier today. Patient reports she was carrying bags of groceries when she tripped over her foot and fell backwards. Patient reports to feeling a "pop" on her right ankle one day prior. She denies any pain, weakness, or dizziness prior to the fall. She also denies twisting her ankle or hitting her head. Patient endorses pain with movement of right ankle, but denies any fever, chills, headache, chest pain, nausea, vomiting, LOC, or any other symptoms. 12 system ROS reviewed and nefative except mentioned in HPI. PMH: DM2, HLD, HTN, and depression PSH: (1986) Family History: Father-DM2, and CAD; Mother: DM2 Social History: Denies tobacco, alcohol or illicit drug use; lives alone in second story apartment with no elevator Allergies: NKDA Home Medications: As per APR PMD: Paula Blanton M.D Present on Admission - Present on Admission Any Indicators Present on Admission: No History of DVT/PE: No History of Uncontrolled Diabetes: No Urinary Catheter: No Decubitus Ulcer Present: No Past Patient History - Infectious Disease Hx of Infectious Diseases: None - Past Social History Smoking Status: Never Smoked - CARDIAC Hx Cardiac Disorders: Yes Hx Hypertension: Yes - PULMONARY Hx Respiratory Disorders: No Hx Tuberculosis: No - NEUROLOGICAL Hx Neurological Disorder: Yes HX Cerebrovascular Accident: No Hx Dizziness: Yes (NEAR SYNCOPE) Hx Seizures: No - HEENT Hx HEENT Problems: No - RENAL Hx Chronic Kidney Disease: No - ENDOCRINE/METABOLIC Hx Diabetes Mellitus Type 2: Yes - HEMATOLOGICAL/ONCOLOGICAL Hx Blood Disorders: No Hx Cancer: No - INTEGUMENTARY Hx Dermatological Problems: No - MUSCULOSKELETAL/RHEUMATOLOGICAL Hx Musculoskeletal Disorders: Yes Hx Falls: Yes (MULTIPLE FALLS) - GASTROINTESTINAL Hx Gastrointestinal Disorders: Yes (DIVERTICULOSIS) - GENITOURINARY/GYNECOLOGICAL Hx Genitourinary Disorders: Yes (PYURIA) Hx Sexually Transmitted Disorders: No Hx Urinary Tract Infection: Yes - PSYCHIATRIC Hx Psychophysiologic Disorder: Yes Hx Depression: Yes Hx Emotional Abuse: No Hx Physical Abuse: No Hx Substance Use: No - SURGICAL HISTORY Hx Surgeries: Yes (C SECTION X 1) - ANESTHESIA Hx Anesthesia Reactions: No Hx Malignant Hyperthermia: No Meds Allergies/Adverse Reactions: Allergies Allergy/AdvReac Type Severity Reaction Status Date / Time No Known Allergies Allergy Verified 06/04/18 15:29 Physical Exam - Constitutional Appears: Well, Non-toxic, No Acute Distress - Head Exam Head Exam: ATRAUMATIC, NORMAL INSPECTION - Eye Exam Eye Exam: EOMI, Normal appearance Pupil Exam: NORMAL ACCOMODATION, PERRL - ENT Exam ENT Exam: Mucous Membranes Moist - Neck Exam Neck exam: Positive for: Normal Inspection. Negative for: Tenderness - Respiratory Exam Respiratory Exam: Clear to Auscultation Bilateral. absent: Rales, Rhonchi, Wheezes, Respiratory Distress - Cardiovascular Exam Cardiovascular Exam: REGULAR RHYTHM, +S1, +S2. absent: Gallop, Rubs, Systolic Murmur - GI/Abdominal Exam GI & Abdominal Exam: Normal Bowel Sounds, Soft. absent: Tenderness - Extremities Exam Additional comments: Pain with palpation of the back of the right ankle at the Achilles joint. Defect could be felt at the achilles about 3 m proximal to the insertion, no pain with calf compression. Muscle strength 4/5 with plantarflexion. Onichomycosis noted on bilaterally. - Back Exam Back exam: NORMAL INSPECTION. absent: CVA tenderness (L), CVA tenderness (R), paraspinal tenderness, vertebral tenderness - Neurological Exam Neurological exam: Alert, CN II-XII Intact, Oriented x3 - Psychiatric Exam Psychiatric exam: Normal Affect, Normal Mood - Skin Skin Exam: Dry, Intact, Normal Color, Warm Results - Vital Signs Recent Vital Signs: Last Vital Signs Temp 98.6 F 06/04/18 12:11 Pulse 94 H 06/04/18 12:11 Resp 16 06/04/18 12:11 BP 129/65 06/04/18 12:11 Pulse Ox 97 06/04/18 12:11 - Labs Result Diagrams: 06/04/18 12:58 06/04/18 12:58 Labs: Laboratory Results - last 24 hr 06/04/18 06/04/18 06/04/18 12:10 12:58 12:58 WBC 7.3 RBC 4.96 Hgb 13.9 Hct 43.3 MCV 87.3 MCH 28.0 MCHC 32.1 RDW 13.0 Plt Count 258 MPV 10.1 Neut % (Auto) 66.3 Lymph % (Auto) 26.2 [place] % (Auto) 6.6 H Eos % (Auto) 0.5 L Baso % (Auto) 0.4 Lymph # (Auto) 1.9 [place] # (Auto) 0.5 Eos # (Auto) 0.0 Baso # (Auto) 0.03 Absolute Neuts (auto) 4.83 PT 12.1 INR 1.09 APTT 28.5 Sodium Potassium Chloride Carbon Dioxide Anion Gap BUN Creatinine Est GFR ( Amer) Est GFR (Non-Af Amer) POC Glucose (mg/dL) 169 H Random Glucose Calcium Total Bilirubin AST ALT Alkaline Phosphatase Total Protein Albumin Globulin Albumin/Globulin Ratio 06/04/18 12:58 WBC RBC Hgb Hct MCV MCH MCHC RDW Plt Count MPV Neut % (Auto) Lymph % (Auto) [place] % (Auto) Eos % (Auto) Baso % (Auto) Lymph # (Auto) [place] # (Auto) Eos # (Auto) Baso # (Auto) Absolute Neuts (auto) PT INR APTT Sodium 137 Potassium 4.4 Chloride 102 Carbon Dioxide 25 Anion Gap 15 BUN 17 Creatinine 0.8 Est GFR ( Amer) > 60 Est GFR (Non-Af Amer) > 60 POC Glucose (mg/dL) Random Glucose 127 H Calcium 9.7 Total Bilirubin 0.1 L AST 22 ALT 17 Alkaline Phosphatase 74 Total Protein 6.7 Albumin 4.1 Globulin 2.6 Albumin/Globulin Ratio 1.6 Assessment & Plan - Assessment and Plan (Free Text) Assessment: Patient is a 68 year old female with a past medical history significant for DM2, HLD, HTN, and depression, presenting with right ankle pain s/p mechanical fall. Plan: Right achilles tendon tear- s/p mechanical fall - Right ankle MRI: There is an Achilles tendon tear. The tear measures 2 cm in length and is located 3 cm above the calcaneal insertion. There is fluid and blood in the tendon sheath. There are some thin fibers connecting the 2 components of the Achilles tendon. - Right ankle xray: no fracture or dislocation - Podiatry consulted, Dr. Berman - Plan for Right Achilles tendon repair surgery on 06/07 at 3PM - NPO after midnight before surgery - Hold AC night before surgery - Will need medical clearance - Tylenol and Toradol PRN for pain - Apply ice to area, elevate right leg - Non weight bearing activity to right leg - PT evaluation Hyperlipidemia - Continue home Zetia Depression - Continue home Bupropion 300mg PO QD Hx of Hypertension - Patient is normotensive - Patient states that her PMD discontinued her antihypertensive medications - Continue to monitor Prophylaxis: - DVT: Lovemox 40mg SC QD Patient seen and case discussed with attending, Dr. Dias. Anthony Wooten, PGY-1 <Mike Dias - Last Filed: 06/04/18 18:12> Results - Vital Signs Recent Vital Signs: Last Vital Signs Temp 98.6 F 06/04/18 12:11 Pulse 85 06/04/18 15:00 Resp 16 06/04/18 15:00 BP 110/61 06/04/18 15:00 Pulse Ox 96 06/04/18 15:00 - Labs Result Diagrams: 06/04/18 12:58 06/04/18 12:58 Labs: Laboratory Results - last 24 hr 06/04/18 06/04/18 06/04/18 12:10 12:58 12:58 WBC 7.3 RBC 4.96 Hgb 13.9 Hct 43.3 MCV 87.3 MCH 28.0 MCHC 32.1 RDW 13.0 Plt Count 258 MPV 10.1 Neut % (Auto) 66.3 Lymph % (Auto) 26.2 [place] % (Auto) 6.6 H Eos % (Auto) 0.5 L Baso % (Auto) 0.4 Lymph # (Auto) 1.9 [place] # (Auto) 0.5 Eos # (Auto) 0.0 Baso # (Auto) 0.03 Absolute Neuts (auto) 4.83 PT 12.1 INR 1.09 APTT 28.5 Sodium Potassium Chloride Carbon Dioxide Anion Gap BUN Creatinine Est GFR ( Amer) Est GFR (Non-Af Amer) POC Glucose (mg/dL) 169 H Random Glucose Calcium Total Bilirubin AST ALT Alkaline Phosphatase Total Protein Albumin Globulin Albumin/Globulin Ratio BBK History Checked 06/04/18 06/04/18 06/04/18 12:58 16:14 17:03 WBC RBC Hgb Hct MCV MCH MCHC RDW Plt Count MPV Neut % (Auto) Lymph % (Auto) [place] % (Auto) Eos % (Auto) Baso % (Auto) Lymph # (Auto) [place] # (Auto) Eos # (Auto) Baso # (Auto) Absolute Neuts (auto) PT INR APTT Sodium 137 Potassium 4.4 Chloride 102 Carbon Dioxide 25 Anion Gap 15 BUN 17 Creatinine 0.8 Est GFR ( Amer) > 60 Est GFR (Non-Af Amer) > 60 POC Glucose (mg/dL) 158 H 150 H Random Glucose 127 H Calcium 9.7 Total Bilirubin 0.1 L AST 22 ALT 17 Alkaline Phosphatase 74 Total Protein 6.7 Albumin 4.1 Globulin 2.6 Albumin/Globulin Ratio 1.6 BBK History Checked 06/04/18 17:30 WBC RBC Hgb Hct MCV MCH MCHC RDW Plt Count MPV Neut % (Auto) Lymph % (Auto) [place] % (Auto) Eos % (Auto) Baso % (Auto) Lymph # (Auto) [place] # (Auto) Eos # (Auto) Baso # (Auto) Absolute Neuts (auto) PT INR APTT Sodium Potassium Chloride Carbon Dioxide Anion Gap BUN Creatinine Est GFR ( Amer) Est GFR (Non-Af Amer) POC Glucose (mg/dL) Random Glucose Calcium Total Bilirubin AST ALT Alkaline Phosphatase Total Protein Albumin Globulin Albumin/Globulin Ratio BBK History Checked No verified bt Attending/Attestation - Attestation I have personally seen and examined this patient.: Yes I have fully participated in the care of the patient.: Yes I have reviewed all pertinent clinical information: Yes Notes (Text): 06/04/18 18:06 68 year old female with past medical history of diabetes, hypertension and d yslipidemia who presented with complaint of right ankle pain s/p mechanical fall. Right ankle xray was negative but right ankle MRI showed Achilles tendon tear (2cm in length located 3 cm above the calcaneal insertion). Podiatry evaluation was appreciated; plan is for tendon repair surgery on Thursday . Continue with toradol prn for pain control. Apply ice and leg elevation. PT evaluation; nonweight bearing activity to right leg. CXR is negative. EKG showed sinus tachycardia. Patient denies any chest pain or dyspnea. Last stress test (2016) was essentially negative. Last echo (2018) was reviewed as well. Patient is low-moderatate risk for low risk procedure. Continue with home medication for dyslipidemia. Continue with insulin ss for diabetes. Patient reports she is not on any home medications for hypertension; continue to monitor. Mike Dias MD Hospitalist.
--- NOTE | 2018-06-04 15:36 | CARD ---
APPROVED REPORT Date of service: 06/04/2018 EKG Measurement Heart [id number] <Conclusion> Normal sinus rhythm Nonspecific T wave abnormality Abnormal ECG
--- NOTE | 2018-06-04 16:32 | CP.PCM.CON ---
History of Present Illness - History of Present Illness History of Present Illness: Podiatry Consult Note: Dr. Berman 68 year old female with a PMH significant for DM2, HLD, HTN, and depression seen and evaluated in the ED for right ankle pain after sustaining mechanical fall earlier today. Patient reports she was carrying bags of groceries when she tripped over her foot and fell backwards. Patient states that she felt POP in the back of her right ankle. She states that she felt immediatly pain and she couldn't bear weight on her RLE. Patient states that she came immediately to the ED. Patient endorses pain with movement or the touch to the back of her right ankle She denies any pain or dizziness prior to incident. She also denies twisting her ankle or hitting her head. but denies any fever, chills, headache, chest pain, nausea, vomiting, LOC, or any other symptoms. PMH: DM2, HLD, HTN, and depression PSH: (1986) Allergies: NKDA Family History: Father-DM2, and CAD; Mother: DM2 Social History: Denies tobacco, alcohol or illicit drug use; lives alone in second story apartment with no elevator Review of Systems - Review of Systems Review of Systems: As Per HPI - Constitutional Constitutional: As Per HPI Past Patient History - Infectious Disease Hx of Infectious Diseases: None - Past Social History Smoking Status: Never Smoked - CARDIAC Hx Cardiac Disorders: Yes Hx Hypertension: Yes - PULMONARY Hx Respiratory Disorders: No Hx Tuberculosis: No - NEUROLOGICAL Hx Neurological Disorder: Yes HX Cerebrovascular Accident: No Hx Dizziness: Yes (NEAR SYNCOPE) Hx Seizures: No - HEENT Hx HEENT Problems: No - RENAL Hx Chronic Kidney Disease: No - ENDOCRINE/METABOLIC Hx Diabetes Mellitus Type 2: Yes - HEMATOLOGICAL/ONCOLOGICAL Hx Blood Disorders: No Hx Cancer: No - INTEGUMENTARY Hx Dermatological Problems: No - MUSCULOSKELETAL/RHEUMATOLOGICAL Hx Musculoskeletal Disorders: Yes Hx Falls: Yes (MULTIPLE FALLS) - GASTROINTESTINAL Hx Gastrointestinal Disorders: Yes (DIVERTICULOSIS) - GENITOURINARY/GYNECOLOGICAL Hx Genitourinary Disorders: Yes (PYURIA) Hx Sexually Transmitted Disorders: No Hx Urinary Tract Infection: Yes - PSYCHIATRIC Hx Psychophysiologic Disorder: Yes Hx Depression: Yes Hx Emotional Abuse: No Hx Physical Abuse: No Hx Substance Use: No - SURGICAL HISTORY Hx Surgeries: Yes (C SECTION X 1) - ANESTHESIA Hx Anesthesia Reactions: No Hx Malignant Hyperthermia: No Meds Allergies/Adverse Reactions: Allergies Allergy/AdvReac Type Severity Reaction Status Date / Time No Known Allergies Allergy Verified 06/04/18 15:29 - Medications Medications: Current Medications Acetaminophen (Tylenol 325mg Tab) 650 mg PO Q6H PRN PRN Reason: Pain, Mild (1-3) Insulin Human Regular (Humulin R Low) 0 units SC ACHS LADI; Protocol Ketorolac Tromethamine (Toradol) 15 mg IVP Q6H PRN PRN Reason: Pain, moderate (4-7) Physical Exam - Constitutional Appears: Well, Non-toxic, No Acute Distress - Head Exam Head Exam: ATRAUMATIC, NORMOCEPHALIC - Extremities Exam Additional comments: RLE focused exam: Vascular: DP/PT palpable, Cap refill < 3 seconds, Temp gradient warm to warm, Mild non-pitting edema appreciated to the back of the rigt ankle Neuro: Gross and protective sensations are intact. Derm: No open lesions, no clinical signs of infection. Erythema appreciated over the distal aspect of the Achilles tendon. Toe nails elongated, Dystrophic, Thickened and discolored to all digits. Diffuse dryness of the LE. MSK: Pain with palpation of the back of the right ankle at the Achilles joint. Defect could be felt at the achilles about 3 m proximal to the insertion, no pain with calf compression. MMT decreased with plantar flexion of the ankle 4/5. Pain on palpating the Achilles tendon area - Neurological Exam Neurological exam: Alert, Oriented x3 Results - Vital Signs Recent Vital Signs: Last Vital Signs Temp 98.6 F 06/04/18 12:11 Pulse 85 06/04/18 15:00 Resp 16 06/04/18 15:00 BP 110/61 06/04/18 15:00 Pulse Ox 96 06/04/18 15:00 - Labs Result Diagrams: 06/04/18 12:58 06/04/18 12:58 Labs: Laboratory Results - last 24 hr 06/04/18 06/04/18 06/04/18 12:10 12:58 12:58 WBC 7.3 RBC 4.96 Hgb 13.9 Hct 43.3 MCV 87.3 MCH 28.0 MCHC 32.1 RDW 13.0 Plt Count 258 MPV 10.1 Neut % (Auto) 66.3 Lymph % (Auto) 26.2 [place] % (Auto) 6.6 H Eos % (Auto) 0.5 L Baso % (Auto) 0.4 Lymph # (Auto) 1.9 [place] # (Auto) 0.5 Eos # (Auto) 0.0 Baso # (Auto) 0.03 Absolute Neuts (auto) 4.83 PT 12.1 INR 1.09 APTT 28.5 Sodium Potassium Chloride Carbon Dioxide Anion Gap BUN Creatinine Est GFR ( Amer) Est GFR (Non-Af Amer) POC Glucose (mg/dL) 169 H Random Glucose Calcium Total Bilirubin AST ALT Alkaline Phosphatase Total Protein Albumin Globulin Albumin/Globulin Ratio 06/04/18 12:58 WBC RBC Hgb Hct MCV MCH MCHC RDW Plt Count MPV Neut % (Auto) Lymph % (Auto) [place] % (Auto) Eos % (Auto) Baso % (Auto) Lymph # (Auto) [place] # (Auto) Eos # (Auto) Baso # (Auto) Absolute Neuts (auto) PT INR APTT Sodium 137 Potassium 4.4 Chloride 102 Carbon Dioxide 25 Anion Gap 15 BUN 17 Creatinine 0.8 Est GFR ( Amer) > 60 Est GFR (Non-Af Amer) > 60 POC Glucose (mg/dL) Random Glucose 127 H Calcium 9.7 Total Bilirubin 0.1 L AST 22 ALT 17 Alkaline Phosphatase 74 Total Protein 6.7 Albumin 4.1 Globulin 2.6 Albumin/Globulin Ratio 1.6 Assessment & Plan - Assessment and Plan (Free Text) Assessment: 68 year old female with a PMH significant for DM2, HLD, HTN, and depression seen and evaluated in the ED for Right Achilles tendon tear. Plan: Patient seen and evaluated in the ED Plan Discussed with Dr Berman. Charts, labs and vitals reviewed: Afebrile, No leukocytosis. Right ankle x-rays taken; No fractures or dislocations appreciated. Right Ankle MRI: Right Achilles tendon tear. Patient placed in posterior/AO splint in ankle planatar flexed position. Instructed to remain strict [id number] to the right lower extremity. Ordered PT evaluation and treatment. Icing and elevation of the R lower extremity. Discussed in detail the need for surgical intervention, the risks, benefits, complications and post-operative course. Patient expressed verbal understanding Pain management per medical team. Plan for OR on Thursday at 3:00 pm for Right Achilles tendon repair with Dr. Berman - Please medically optimize patient. - Please provide medical clearance. - NPO starting the midnight before the surgery. - Please hold the anticoagulants the night before the surgery. Thank you for the consult. Podiatry will follow up the patient while in house. - Date & Time Date: 06/04/18 Time: 16:35
[2018-06-04] MEDS: Insulin Reg-LOW-Coverage SC SCH ×2 (17:52→21:48)
[2018-06-04] MEDS ORDERED: Influenza Vaccine 60 mcg/0.5 mL SYR (4YR UP) IM ONE (20:06)
[2018-06-04] MEDS ORDERED: Pneumococcal 23-Valent Vaccine IM ONE (20:06)
[2018-06-05] MEDS: Insulin Reg-LOW-Coverage SC SCH ×4 (07:59→23:29)
[2018-06-05 08:18] LABS: BASO # 0.01 K/mm3 (0.0-2.0); BASO % 0.2 % (0.0-3.0); EOS % 0.3 % (1.5-5.0); HEMOGLOBIN 13.8 g/dL (12.0-16.0); LYMPH # 1.5 (1.2-3.4); LYMPH % 26.8 % (22.0-35.0); MEAN CELL VOLUME 86.7 fl (80.0-105.0); MEAN CORPUSCULAR HEMOGLOBIN 27.9 pg (25.0-35.0); MEAN CORPUSCULAR HGB CONC 32.2 g/dl (31.0-37.0); MONO # 0.5 (0.1-0.6); MONO % 8.3 % (1.0-6.0); RBC 4.95 10^6/uL (3.5-6.1); RED CELL DISTRIBUTION WIDTH 13.1 % (11.5-14.5); WHITE BLOOD COUNT 5.8 10^3/uL (4.5-11.0)
[2018-06-05 08:53] LABS: ALB/GLOB RATIO 1.4 (1.1-1.8); ALT/SGPT 18 U/L (7-56); AST/SGOT 22 U/L (14-36); BLOOD UREA NITROGEN 13 mg/dL (7-21); CALCIUM 9.3 mg/dL (8.4-10.5); GFR NON-AFRICAN AMERICAN > 60
[2018-06-05] MEDS ORDERED: [UNRECOGNIZED DRUG - OTHER] PO SCH (10:00)
[2018-06-05] MEDS ORDERED: Enoxaparin 40 mg Syringe SC SCH (10:00)
[2018-06-05] MEDS ORDERED: EZETIMIBE PO SCH (10:00)
[2018-06-05] MEDS ORDERED: SIMVASTATIN PO SCH (10:00)
--- NOTE | 2018-06-05 10:51 | CP.PCM.PN ---
<Cisco Hightower - Last Filed: 06/05/18 10:48> Subjective - Date & Time of Evaluation Date of Evaluation: 06/05/18 Time of Evaluation: 10:48 - Subjective Subjective: Medicine Progress Note for Dr. Dias Patient seen and examined at bedside. No acute overnight events. Patient states that pain is minimal. Patient is non-weightbearing and awaiting surgery on Thursday. Patient denies CP, SOB, n/v/d, abdominal pain, fever, chills, RING, and dizziness. Objective - Vital Signs/Intake and Output Vital Signs (last 24 hours): Temp Pulse Resp BP Pulse Ox 98.6 F 85 16 110/61 96 06/04/18 12:11 06/04/18 15:00 06/04/18 19:43 06/04/18 15:00 06/04/18 15:00 Intake and Output: 06/05/18 06/05/18 06:59 18:59 Intake Total 720 Balance 720 - Medications Medications: Current Medications Acetaminophen (Tylenol 325mg Tab) 650 mg PO Q6H PRN PRN Reason: Pain, Mild (1-3) Atorvastatin Calcium (Lipitor) 20 mg PO DAILY [facility] Last Admin: 06/05/18 10:17 Dose: 20 mg Bupropion HCl (Wellbutrin) 300 mg PO DAILY [facility] Last Admin: 06/05/18 10:17 Dose: 300 mg Ezetimibe (Zetia) 10 mg PO DAILY [facility] Last Admin: 06/05/18 10:18 Dose: 10 mg Enoxaparin Sodium (Lovenox) 40 mg SC DAILY [facility]; Protocol Last Admin: 06/05/18 10:17 Dose: 40 mg Insulin Human Regular (Humulin R Low) 0 units SC [facility]; Protocol Last Admin: 06/05/18 07:59 Dose: Not Given Ketorolac Tromethamine (Toradol) 15 mg IVP Q6H PRN PRN Reason: Pain, moderate (4-7) - Labs Labs: 06/05/18 07:00 06/05/18 07:00 PT 12.1 SECONDS (9.4-12.5) 06/04/18 12:58 INR 1.09 06/04/18 12:58 APTT 28.5 Seconds (26.9-38.3) 06/04/18 12:58 - Constitutional Appears: No Acute Distress - Head Exam Head Exam: NORMAL INSPECTION - Eye Exam Eye Exam: Normal appearance Pupil Exam: NORMAL ACCOMODATION - ENT Exam ENT Exam: Mucous Membranes Moist, Normal Exam - Neck Exam Neck Exam: Normal Inspection - Respiratory Exam Respiratory Exam: Clear to Ausculation Bilateral. absent: Rales, Rhonchi, Wheezes - Cardiovascular Exam Cardiovascular Exam: RRR, +S1, +S2. absent: Gallop, Rubs, Murmur - GI/Abdominal Exam GI & Abdominal Exam: Soft. absent: Distended, Guarding, Tenderness, Rebound - Extremities Exam Additional comments: Right LE splinted and wrapped with reinier bandage; yellowing of all toenails - Neurological Exam Neurological Exam: Alert, Awake, CN II-XII Intact, Oriented x3 - Psychiatric Exam Psychiatric exam: Normal Affect, Normal Mood - Skin Skin Exam: Dry, Intact, Normal Color, Warm Assessment and Plan - Assessment and Plan (Free Text) Assessment: Patient is a 68 year old female with a past medical history significant for DM2, HLD, HTN, and depression, presenting with right ankle pain s/p mechanical fall. Patient is admitted due to right achilles tendon tear and is awaiting surgery on Thursday. Patient is medically optimized and is a low-moderate risk for low risk procedure. Plan: Right Achilles tendon tear- s/p mechanical fall - Right ankle MRI showed Achilles tendon tear measuring 2 cm and is located 3 cm above the calcaneal insertion - Right ankle xray: no fracture or dislocation - Podiatry consulted, Dr. Berman - Plan for Right Achilles tendon repair surgery on 06/07 at 3PM - NPO after midnight before surgery - Hold AC night before surgery - Tylenol and Toradol PRN for pain - Apply ice to area, elevate right leg - Non weight bearing activity to right leg - PT evaluation Hyperlipidemia - Continue Zetia and Lipitor Depression - Continue home Bupropion 300mg PO QD Hx of Hypertension - Patient is normotensive - Patient states that her PMD discontinued her antihypertensive medications - Continue to monitor Prophylaxis: - DVT: Lovenox 40mg SC QD Patient seen and case discussed with attending, Dr. Dias. Eduardo Hightower, DO PGY2 <Mike Dias - Last Filed: 06/05/18 11:00> Objective - Vital Signs/Intake and Output Vital Signs (last 24 hours): Temp Pulse Resp BP Pulse Ox 98.6 F 85 16 110/61 96 06/04/18 12:11 06/04/18 15:00 06/04/18 19:43 06/04/18 15:00 06/04/18 15:00 Intake and Output: 06/05/18 06/05/18 06:59 18:59 Intake Total 720 Balance 720 - Medications Medications: Current Medications Acetaminophen (Tylenol 325mg Tab) 650 mg PO Q6H PRN PRN Reason: Pain, Mild (1-3) Atorvastatin Calcium (Lipitor) 20 mg PO DAILY [facility] Last Admin: 06/05/18 10:17 Dose: 20 mg Bupropion HCl (Wellbutrin) 300 mg PO DAILY [facility] Last Admin: 06/05/18 10:17 Dose: 300 mg Ezetimibe (Zetia) 10 mg PO DAILY [facility] Last Admin: 06/05/18 10:18 Dose: 10 mg Enoxaparin Sodium (Lovenox) 40 mg SC DAILY [facility]; Protocol Last Admin: 06/05/18 10:17 Dose: 40 mg Insulin Human Regular (Humulin R Low) 0 units SC [facility]; Protocol Last Admin: 06/05/18 07:59 Dose: Not Given Ketorolac Tromethamine (Toradol) 15 mg IVP Q6H PRN PRN Reason: Pain, moderate (4-7) - Labs Labs: 06/05/18 07:00 06/05/18 07:00 PT 12.1 SECONDS (9.4-12.5) 06/04/18 12:58 INR 1.09 06/04/18 12:58 APTT 28.5 Seconds (26.9-38.3) 06/04/18 12:58 Attending/Attestation - Attestation I have personally seen and examined this patient.: Yes I have fully participated in the care of the patient.: Yes I have reviewed all pertinent clinical information, including history, physical exam and plan: Yes Notes (Text): 06/05/18 10:58 68 year old female with past medical history of diabetes, hypertension and dyslipidemia who presented with complaint of right ankle pain s/p mechanical fall. Right ankle xray was negative but right ankle MRI showed Achilles tendon tear (2cm in length located 3 cm above the calcaneal insertion). Podiatry is following and plan is for tendon repair surgery on Thursday afternoon. Continue with toradol prn for pain control. Apply ice and leg elevation. PT evaluation; non-weight bearing activity to right leg. Continue with home medication for dyslipidemia. Continue with insulin ss for diabetes. Patient reports she is not on any home medications for hypertension; continue to monitor. Mike Dias MD Hospitalist.
--- NOTE | 2018-06-05 11:06 | CP.PCM.PN ---
Subjective - Date & Time of Evaluation Date of Evaluation: 06/05/18 Time of Evaluation: 11:01 - Subjective Subjective: Podiatry progress Note: Dr. Berman 68 year old female patient seen and evaluated in the ED for Right Achilles tendon tear. Patient states that her right heel pain decreased a lot since yesterday. Patient states that she doesn't bear any weight on her right lower extremity since yesterday. She denies any overnight fever, chills, headache, chest pain, nausea, vomiting, or any other symptoms. Objective - Vital Signs/Intake and Output Vital Signs (last 24 hours): Temp Pulse Resp BP Pulse Ox 98.6 F 85 16 110/61 96 06/04/18 12:11 06/04/18 15:00 06/04/18 19:43 06/04/18 15:00 06/04/18 15:00 Intake and Output: 06/05/18 06/05/18 06:59 18:59 Intake Total 720 Balance 720 - Medications Medications: Current Medications Acetaminophen (Tylenol 325mg Tab) 650 mg PO Q6H PRN PRN Reason: Pain, Mild (1-3) Atorvastatin Calcium (Lipitor) 20 mg PO DAILY [facility] Last Admin: 06/05/18 10:17 Dose: 20 mg Bupropion HCl (Wellbutrin) 300 mg PO DAILY [facility] Last Admin: 06/05/18 10:17 Dose: 300 mg Ezetimibe (Zetia) 10 mg PO DAILY [facility] Last Admin: 06/05/18 10:18 Dose: 10 mg Enoxaparin Sodium (Lovenox) 40 mg SC DAILY [facility]; Protocol Last Admin: 06/05/18 10:17 Dose: 40 mg Insulin Human Regular (Humulin R Low) 0 units SC [facility]; Protocol Last Admin: 06/05/18 07:59 Dose: Not Given Ketorolac Tromethamine (Toradol) 15 mg IVP Q6H PRN PRN Reason: Pain, moderate (4-7) - Labs Labs: 06/05/18 07:00 06/05/18 07:00 PT 12.1 SECONDS (9.4-12.5) 06/04/18 12:58 INR 1.09 06/04/18 12:58 APTT 28.5 Seconds (26.9-38.3) 06/04/18 12:58 - Constitutional Appears: Well, Non-toxic, No Acute Distress - Head Exam Head Exam: ATRAUMATIC, NORMOCEPHALIC - Extremities Exam Additional comments: Posterior splint C/D/I Patient able to wiggle toes NVS intact, Cap refill < 3 sec to all digits - Neurological Exam Neurological Exam: Alert, Awake, Oriented x3 Assessment and Plan - Assessment and Plan (Free Text) Assessment: 68 year old female patient seen and evaluated in the ED for Right Achilles tendon tear. Plan: Patient seen and evaluated. Plan Discussed with Dr Berman. Charts, labs and vitals reviewed: Afebrile, No leukocytosis. Right ankle x-rays taken; No fractures or dislocations appreciated. Right Ankle MRI: Right Achilles tendon tear. Posterior/AO splint left C/D/I Continue [id number] to the right lower extremity. Ordered PT evaluation and treatment. Continue icing and elevation of the R lower extremity. Continue pain management per medical team. Plan for OR on Thursday at 3:00 pm for Right Achilles tendon repair with Dr. Berman - Please medically optimize patient. - Please provide medical clearance. - NPO starting the midnight before the surgery. - Please hold the anticoagulants the night before the surgery. Podiatry will continue to follow up the patient while in house.
[2018-06-06 08:04] LABS: ALB/GLOB RATIO 1.3 (1.1-1.8); ALBUMIN 4.1 g/dL (3.0-4.8); ALT/SGPT 18 U/L (7-56); AST/SGOT 22 U/L (14-36); BLOOD UREA NITROGEN 12 mg/dL (7-21); CALCIUM 9.4 mg/dL (8.4-10.5); GFR NON-AFRICAN AMERICAN > 60
[2018-06-06 08:07] LABS: BASO # 0.01 K/mm3 (0.0-2.0); BASO % 0.2 % (0.0-3.0); EOS % 0.4 % (1.5-5.0); HEMOGLOBIN 14.3 g/dL (12.0-16.0); LYMPH # 1.6 (1.2-3.4); LYMPH % 28.8 % (22.0-35.0); MEAN CELL VOLUME 86.9 fl (80.0-105.0); MEAN CORPUSCULAR HGB CONC 32.2 g/dl (31.0-37.0); MONO # 0.3 (0.1-0.6); RBC 5.11 10^6/uL (3.5-6.1); RED CELL DISTRIBUTION WIDTH 13.1 % (11.5-14.5); WHITE BLOOD COUNT 5.5 10^3/uL (4.5-11.0)
[2018-06-06] MEDS: Insulin Reg-LOW-Coverage SC SCH ×4 (08:11→22:00)
[2018-06-06 08:52] LABS: INR 1.12; PARTIAL THROMBOPLASTIN TIME 29.1 Seconds (26.9-38.3); PROTHROMBIN TIME 12.7 SECONDS (9.4-12.5)
--- NOTE | 2018-06-06 11:09 | CP.PCM.PN ---
Subjective - Date & Time of Evaluation Date of Evaluation: 06/06/18 Time of Evaluation: 11:03 - Subjective Subjective: Podiatry progress Note: Dr. Berman: 68 year old female patient seen and evaluated in the bedside for Right Achilles tendon tear. Patient states that her right heel pain is very minimal now. Patient states that she doesn't bear any weight on her right lower extremity since yesterday. She denies any overnight fever, chills, headache, chest pain, nausea, vomiting, or any other symptoms. Patient is aware with her surgery tomorrow. Objective - Vital Signs/Intake and Output Vital Signs (last 24 hours): Temp Pulse Resp BP Pulse Ox 98.6 F 83 18 113/74 96 06/06/18 06:00 06/06/18 06:00 06/06/18 06:00 06/06/18 06:00 06/06/18 06:00 Intake and Output: 06/06/18 06/06/18 06:59 18:59 Intake Total 120 Balance 120 - Medications Medications: Current Medications Acetaminophen (Tylenol 325mg Tab) 650 mg PO Q6H PRN PRN Reason: Pain, Mild (1-3) Atorvastatin Calcium (Lipitor) 20 mg PO DAILY [facility] Last Admin: 06/06/18 09:31 Dose: 20 mg Bupropion HCl (Wellbutrin) 300 mg PO DAILY [facility] Last Admin: 06/06/18 09:30 Dose: 300 mg Ezetimibe (Zetia) 10 mg PO DAILY [facility] Last Admin: 06/06/18 09:31 Dose: 10 mg Enoxaparin Sodium (Lovenox) 40 mg SC DAILY [facility]; Protocol Last Admin: 06/05/18 10:17 Dose: 40 mg Insulin Human Regular (Humulin R Low) 0 units SC [facility]; Protocol Last Admin: 06/06/18 08:11 Dose: Not Given Ketorolac Tromethamine (Toradol) 15 mg IVP Q6H PRN PRN Reason: Pain, moderate (4-7) - Labs Labs: 06/06/18 07:00 06/06/18 07:00 PT 12.7 SECONDS (9.4-12.5) H 06/06/18 07:00 INR 1.12 06/06/18 07:00 APTT 29.1 Seconds (26.9-38.3) 06/06/18 07:00 - Constitutional Appears: Well, Non-toxic, No Acute Distress - Head Exam Head Exam: ATRAUMATIC, NORMOCEPHALIC - Extremities Exam Additional comments: Posterior splint C/D/I Patient able to wiggle toes NVS intact, Cap refill < 3 sec to all digits - Neurological Exam Neurological Exam: Alert, Awake, Oriented x3 - Psychiatric Exam Psychiatric exam: Normal Affect, Normal Mood Assessment and Plan - Assessment and Plan (Free Text) Assessment: 68 year old female patient seen and evaluated in the ED for Right Achilles tendon tear. Plan: Patient seen and evaluated. Plan Discussed with Dr Berman. Charts, labs and vitals reviewed: Afebrile, No leukocytosis. Right ankle x-rays taken; No fractures or dislocations appreciated. Right Ankle MRI: Right Achilles tendon tear. Posterior/AO splint left C/D/I Continue [id number] to the right lower extremity. PT evaluation and treatment. Continue icing and elevation of the R lower extremity. Continue pain management per medical team. Plan for OR on Thursday at 3:00 pm for Right Achilles tendon repair with Dr. Jacob gutierrez - Please medically optimize patient. - Please provide medical clearance. - NPO starting the midnight before the surgery. - Please hold the anticoagulants the night before the surgery. Podiatry will continue to follow up the patient while in house.
--- NOTE | 2018-06-06 11:47 | CP.PCM.PN ---
<Cisco Hightower - Last Filed: 06/06/18 11:44> Subjective - Date & Time of Evaluation Date of Evaluation: 06/06/18 Time of Evaluation: 11:44 - Subjective Subjective: Medicine Progress Note for Dr. Dias Patient seen and examined at bedside. No acute overnight events. Patient states pain is minimal. Patient denies CP, SOB, n/v/d, abdominal pain, fever, chills, RING, or dizziness. Objective - Vital Signs/Intake and Output Vital Signs (last 24 hours): Temp Pulse Resp BP Pulse Ox 98.6 F 83 18 113/74 96 06/06/18 06:00 06/06/18 06:00 06/06/18 06:00 06/06/18 06:00 06/06/18 06:00 Intake and Output: 06/06/18 06/06/18 06:59 18:59 Intake Total 120 Balance 120 - Medications Medications: Current Medications Acetaminophen (Tylenol 325mg Tab) 650 mg PO Q6H PRN PRN Reason: Pain, Mild (1-3) Atorvastatin Calcium (Lipitor) 20 mg PO DAILY [facility] Last Admin: 06/06/18 09:31 Dose: 20 mg Bupropion HCl (Wellbutrin) 300 mg PO DAILY [facility] Last Admin: 06/06/18 09:30 Dose: 300 mg Ezetimibe (Zetia) 10 mg PO DAILY [facility] Last Admin: 06/06/18 09:31 Dose: 10 mg Enoxaparin Sodium (Lovenox) 40 mg SC DAILY [facility]; Protocol Last Admin: 06/05/18 10:17 Dose: 40 mg Insulin Human Regular (Humulin R Low) 0 units SC [facility]; Protocol Last Admin: 06/06/18 11:44 Dose: Not Given Ketorolac Tromethamine (Toradol) 15 mg IVP Q6H PRN PRN Reason: Pain, moderate (4-7) - Labs Labs: 06/06/18 07:00 06/06/18 07:00 PT 12.7 SECONDS (9.4-12.5) H 06/06/18 07:00 INR 1.12 06/06/18 07:00 APTT 29.1 Seconds (26.9-38.3) 06/06/18 07:00 - Constitutional Appears: No Acute Distress - Head Exam Head Exam: NORMAL INSPECTION - Eye Exam Eye Exam: Normal appearance Pupil Exam: NORMAL ACCOMODATION - ENT Exam ENT Exam: Mucous Membranes Moist - Neck Exam Neck Exam: Normal Inspection - Respiratory Exam Respiratory Exam: Clear to Ausculation Bilateral. absent: Rales, Rhonchi, Wheezes - Cardiovascular Exam Cardiovascular Exam: RRR, +S1, +S2. absent: Gallop, Rubs, Murmur - GI/Abdominal Exam GI & Abdominal Exam: Soft. absent: Distended, Guarding, Tenderness, Rebound - Extremities Exam Additional comments: right LE splinted and wrapped with reinier bandage - Neurological Exam Neurological Exam: Alert, Awake, Oriented x3 - Psychiatric Exam Psychiatric exam: Normal Affect, Normal Mood - Skin Skin Exam: Dry, Intact, Normal Color, Warm Assessment and Plan - Assessment and Plan (Free Text) Assessment: Patient is a 68 year old female with a past medical history significant for DM2, HLD, HTN, and depression, presenting with right ankle pain s/p mechanical fall. Patient is admitted due to right achilles tendon tear and is awaiting surgery on Thursday. Patient is medically optimized and is a low-moderate risk for low risk procedure. Plan: Right Achilles tendon tear s/p mechanical fall - Right ankle MRI showed Achilles tendon tear measuring 2 cm and is located 3 cm above the calcaneal insertion - Right ankle xray negative - Podiatry consulted, Dr. Berman - Plan for Right Achilles tendon repair surgery on 06/07 at 3PM - NPO after midnight tonight - Hold AC tonight - Tylenol and Toradol PRN for pain - Apply ice to area, elevate right leg - Non weight bearing activity to right leg - PT evaluation Hyperlipidemia - Continue Zetia and Lipitor Depression - Continue home Bupropion 300mg PO QD Hx of Hypertension - Patient is normotensive - Patient states that her PMD discontinued her antihypertensive medications - Continue to monitor Prophylaxis: - Lovenox for DVT PPx Patient seen and case discussed with attending, Dr. Dias. Eduardo Hightower DO PGY2 <Mike Dias - Last Filed: 06/06/18 12:52> Objective - Vital Signs/Intake and Output Vital Signs (last 24 hours): Temp Pulse Resp BP Pulse Ox 98.6 F 83 18 113/74 96 06/06/18 06:00 06/06/18 06:00 06/06/18 06:00 06/06/18 06:00 06/06/18 06:00 Intake and Output: 06/06/18 06/06/18 06:59 18:59 Intake Total 120 Balance 120 - Medications Medications: Current Medications Acetaminophen (Tylenol 325mg Tab) 650 mg PO Q6H PRN PRN Reason: Pain, Mild (1-3) Atorvastatin Calcium (Lipitor) 20 mg PO DAILY [facility] Last Admin: 06/06/18 09:31 Dose: 20 mg Bupropion HCl (Wellbutrin) 300 mg PO DAILY [facility] Last Admin: 06/06/18 09:30 Dose: 300 mg Ezetimibe (Zetia) 10 mg PO DAILY [facility] Last Admin: 06/06/18 09:31 Dose: 10 mg Enoxaparin Sodium (Lovenox) 40 mg SC DAILY [facility]; Protocol Last Admin: 06/05/18 10:17 Dose: 40 mg Insulin Human Regular (Humulin R Low) 0 units SC [facility]; Protocol Last Admin: 06/06/18 11:44 Dose: Not Given Ketorolac Tromethamine (Toradol) 15 mg IVP Q6H PRN PRN Reason: Pain, moderate (4-7) - Labs Labs: 06/06/18 07:00 06/06/18 07:00 PT 12.7 SECONDS (9.4-12.5) H 06/06/18 07:00 INR 1.12 06/06/18 07:00 APTT 29.1 Seconds (26.9-38.3) 06/06/18 07:00 Attending/Attestation - Attestation I have personally seen and examined this patient.: Yes I have fully participated in the care of the patient.: Yes I have reviewed all pertinent clinical information, including history, physical exam and plan: Yes Notes (Text): 06/06/18 12:51 68 year old female with past medical history of diabetes, hypertension and dyslipidemia who presented with complaint of right ankle pain s/p mechanical fall. Right ankle xray was negative but right ankle MRI showed Achilles tendon tear (2cm in length located 3 cm above the calcaneal insertion). Podiatry is following and plan is for tendon repair surgery tomorrow afternoon. Lovenox on hold and NPO after midnight for planned procedure. Continue with toradol prn for pain control. Apply ice and leg elevation. PT evaluation; non-weight bearing activity to right leg. Continue with home medication for dyslipidemia. Continue with insulin ss for diabetes. Patient reports she is not on any home medications for hypertension; continue to monitor. Mike Dias MD Hospitalist.
--- NOTE | 2018-06-06 16:15 | CP.PCM.PN ---
Subjective - Date & Time of Evaluation Date of Evaluation: 06/06/18 Time of Evaluation: 16:11 - Subjective Subjective: The patient is seen at bedside resting comfortably with her in attendance with patients consent. She states she is aware that she is scheduled for surgical repair of her right Achilles tendon and desires the same. Objective - Vital Signs/Intake and Output Vital Signs (last 24 hours): Temp Pulse Resp BP Pulse Ox 99.1 F 78 18 122/75 96 06/06/18 14:00 06/06/18 14:00 06/06/18 14:00 06/06/18 14:00 06/06/18 14:00 Intake and Output: 06/06/18 06/06/18 06:59 18:59 Intake Total 120 Balance 120 - Medications Medications: Current Medications Acetaminophen (Tylenol 325mg Tab) 650 mg PO Q6H PRN PRN Reason: Pain, Mild (1-3) Atorvastatin Calcium (Lipitor) 20 mg PO DAILY [facility] Last Admin: 06/06/18 09:31 Dose: 20 mg Bupropion HCl (Wellbutrin) 300 mg PO DAILY [facility] Last Admin: 06/06/18 09:30 Dose: 300 mg Ezetimibe (Zetia) 10 mg PO DAILY [facility] Last Admin: 06/06/18 09:31 Dose: 10 mg Enoxaparin Sodium (Lovenox) 40 mg SC DAILY [facility]; Protocol Last Admin: 06/05/18 10:17 Dose: 40 mg Insulin Human Regular (Humulin R Low) 0 units SC [facility]; Protocol Last Admin: 06/06/18 11:44 Dose: Not Given Ketorolac Tromethamine (Toradol) 15 mg IVP Q6H PRN PRN Reason: Pain, moderate (4-7) - Labs Labs: 06/06/18 07:00 06/06/18 07:00 PT 12.7 SECONDS (9.4-12.5) H 06/06/18 07:00 INR 1.12 06/06/18 07:00 APTT 29.1 Seconds (26.9-38.3) 06/06/18 07:00 - Constitutional Appears: Well, No Acute Distress - Extremities Exam Extremities Exam: Normal Capillary Refill. absent: Calf Tenderness, Full ROM, Joint Swelling, Normal Inspection, Pedal Edema, Tenderness Additional comments: Right foot and ankle are in good position with Renteria compressive dressing and posterior splint in place. Minimal digital edema and no obvious edema proximal to the Renteria dressing. Tactile sensation is intact to toes 1-5 right. - Neurological Exam Neurological Exam: Abnormal Gait, Alert, Awake, CN II-XII Intact, Reflexes Normal. absent: Altered, Motor Sensory Deficit, Normal Gait, Oriented x3 Neuro motor strength exam: Left Upper Extremity: 5, Right Upper Extremity: 5, Left Lower Extremity: 5, Right Lower Extremity: 0 (Posterior splint right leg) - Psychiatric Exam Psychiatric exam: Normal Affect, Normal Mood. absent: Agitated, Anxious, Depressed, Flat Affect, Homicidal Ideation, Manic, Suicidal Ideation - Skin Skin Exam: Intact, Normal Color, Warm Assessment and Plan - Assessment and Plan (Free Text) Assessment: Stable immobilization of a severe partial tear of the right Achilles tendon Plan: 1. The probable etiology of the Achilles trauma right leg is reviewed with the patient in detail along with a review of conservative treatment options. These include intermodal customer service immobilization followed by rehabilitation. 2. Discuss the proposed surgical plan in detail with the patient and her h usband. They are aware that during the repair soft tissue anchors may be inserted into the calcaneus and we are going to reinforce the repair with a bio- material graft. Risks, benefits and altenatiuves as well as post-operative course are all discussed in detail. The patient is aware she will be completely non-weight bearing for at least 6 weeks following her surgery. Possible risks discussed included but were not limited to: infection, scarring, swelling, stiffness, numbness, nerve damage, delayed healing, muscle weakness, continued pain and need of additional surgery. 3. The patient demonstrates a good understanding of this discussion and wants to proceed with surgical treatment. 4. Consent form is read by, reviewed with and signed by the patient at this time. 5. We discus possible transfer of the patient into transitional care if her ambualtion non-weight bearing is unstable post-operatively.
[2018-06-07 04:45] LABS: URINE BILIRUBIN NEGATIVE (NEGATIVE); URINE BLOOD NEGATIVE (NEGATIVE); URINE GLUCOSE (UA) >=1000 mg/dL (NEGATIVE); URINE LEUKOCYTE ESTERASE NEGATIVE Leu/uL (NEGATIVE); URINE PROTEIN NEGATIVE mg/dL (<30 mg/dL); URINE UROBILINOGEN 0.2 E.U./dL (<1 E.U./dL)
[2018-06-07 04:49] LABS: URINE APPEARANCE CLEAR (CLEAR); URINE COLOR YELLOW (YELLOW)
[2018-06-07 07:21] LABS: BASO # 0.01 K/mm3 (0.0-2.0); BASO % 0.2 % (0.0-3.0); EOS % 0.3 % (1.5-5.0); HEMOGLOBIN 14.4 g/dL (12.0-16.0); LYMPH # 1.4 (1.2-3.4); LYMPH % 24.4 % (22.0-35.0); MEAN CELL VOLUME 86.3 fl (80.0-105.0); MEAN CORPUSCULAR HEMOGLOBIN 28.1 pg (25.0-35.0); MEAN CORPUSCULAR HGB CONC 32.6 g/dl (31.0-37.0); MEAN PLATELET VOLUME 9.7 fl (7.0-11.0); MONO # 0.3 (0.1-0.6); MONO % 4.9 % (1.0-6.0); RBC 5.12 10^6/uL (3.5-6.1); RED CELL DISTRIBUTION WIDTH 12.9 % (11.5-14.5); WHITE BLOOD COUNT 5.9 10^3/uL (4.5-11.0)
[2018-06-07 07:33] LABS: BLOOD UREA NITROGEN 14 mg/dL (7-21); CALCIUM 9.5 mg/dL (8.4-10.5); GFR NON-AFRICAN AMERICAN > 60
[2018-06-07] MEDS: Insulin Reg-LOW-Coverage SC SCH ×3 (08:31→17:00)
--- NOTE | 2018-06-07 09:07 | CP.PCM.PN ---
<Anthony Wooten - Last Filed: 06/07/18 15:50> Subjective - Date & Time of Evaluation Date of Evaluation: 06/07/18 Time of Evaluation: 09:06 - Subjective Subjective: PGY-1 Medicine progress note for Dr. Martinez Patient seen and examined at bedside. No acute events overnight. Patient is scheduled to go to the OR at 3PM today. She denies fevers, chills, shortness of breath, abdominal pain, nausea, vomiting, diarrhea, or urinary symptoms. Objective - Vital Signs/Intake and Output Vital Signs (last 24 hours): Temp Pulse Resp BP Pulse Ox 97.7 F 77 18 114/74 97 06/07/18 06:00 06/07/18 06:00 06/07/18 06:00 06/07/18 06:00 06/07/18 06:00 Intake and Output: 06/07/18 06/07/18 06:59 18:59 Intake Total 0 Balance 0 - Medications Medications: Current Medications Acetaminophen (Tylenol 325mg Tab) 650 mg PO Q6H PRN PRN Reason: Pain, Mild (1-3) Atorvastatin Calcium (Lipitor) 20 mg PO DAILY [facility] Last Admin: 06/06/18 09:31 Dose: 20 mg Bupropion HCl (Wellbutrin) 300 mg PO DAILY [facility] Last Admin: 06/06/18 09:30 Dose: 300 mg Ezetimibe (Zetia) 10 mg PO DAILY [facility] Last Admin: 06/06/18 09:31 Dose: 10 mg Enoxaparin Sodium (Lovenox) 40 mg SC DAILY [facility]; Protocol Last Admin: 06/05/18 10:17 Dose: 40 mg Insulin Human Regular (Humulin R Low) 0 units SC [facility]; Protocol Last Admin: 06/07/18 08:31 Dose: 1 units Ketorolac Tromethamine (Toradol) 15 mg IVP Q6H PRN PRN Reason: Pain, moderate (4-7) - Labs Labs: 06/07/18 07:00 06/07/18 07:00 PT 12.7 SECONDS (9.4-12.5) H 06/06/18 07:00 INR 1.12 06/06/18 07:00 APTT 29.1 Seconds (26.9-38.3) 06/06/18 07:00 - Additional Findings Additional findings: - Constitutional Appears: No Acute Distress - Head Exam Head Exam: NORMAL INSPECTION - Eye Exam Eye Exam: Normal appearance Pupil Exam: NORMAL ACCOMODATION - ENT Exam ENT Exam: Mucous Membranes Moist - Neck Exam Neck Exam: Normal Inspection - Respiratory Exam Respiratory Exam: Clear to Ausculation Bilateral. absent: Rales, Rhonchi, Wheezes - Cardiovascular Exam Cardiovascular Exam: RRR, +S1, +S2. absent: Gallop, Rubs, Murmur - GI/Abdominal Exam GI & Abdominal Exam: Soft. absent: Distended, Guarding, Tenderness, Rebound - Extremities Exam Additional comments: right LE splinted and wrapped with reinier bandage - Neurological Exam Neurological Exam: Alert, Awake, Oriented x3 - Psychiatric Exam Psychiatric exam: Normal Affect, Normal Mood - Skin Skin Exam: Dry, Intact, Normal Color, Warm Assessment and Plan - Assessment and Plan (Free Text) Assessment: Patient is a 68 year old female with a past medical history significant for DM2, HLD, HTN, and depression, presenting with right ankle pain s/p mechanical fall. Patient is admitted due to right achilles tendon tear and is awaiting surgery on Thursday. Plan: Right Achilles tendon tear s/p mechanical fall - Right ankle MRI showed Achilles tendon tear measuring 2 cm and is located 3 cm above the calcaneal insertion - Right ankle xray negative - Podiatry consulted, Dr. Berman - Plan for Right Achilles tendon repair surgery today at 3PM - Tylenol and Toradol PRN for pain - Apply ice to area, elevate right leg - Non weight bearing activity to right leg - PT evaluation Hyperlipidemia - Continue Zetia and Lipitor Depression - Continue home Bupropion 300mg PO QD Hx of Hypertension - Patient is normotensive - Patient states that her PMD discontinued her antihypertensive medications - Continue to monitor Prophylaxis: - Lovenox for DVT PPx - held for surgery Patient seen and case discussed with attending, Dr. Martinez. Anthony Wooten, PGY-1 <Leo Martinez - Last Filed: 06/09/18 07:47> Objective - Vital Signs/Intake and Output Vital Signs (last 24 hours): Temp Pulse Resp BP Pulse Ox 99.1 F 88 18 93/60 L 98 06/08/18 17:30 06/08/18 17:30 06/08/18 17:30 06/08/18 17:30 06/08/18 17:30 - Labs Labs: 06/08/18 06:45 06/08/18 06:45 PT 12.7 SECONDS (9.4-12.5) H 06/06/18 07:00 INR 1.12 06/06/18 07:00 APTT 29.1 Seconds (26.9-38.3) 06/06/18 07:00 Attending/Attestation - Attestation I have personally seen and examined this patient.: Yes I have fully participated in the care of the patient.: Yes I have reviewed all pertinent clinical information, including history, physical exam and plan: Yes Notes (Text): 06/09/18 07:47 Medical record note made by the resident after discussion with my direction and input after the patient was personally seen and examined by me. I have reviewed the chart and agree that the record accurately reflects by personal performance of the history, physical exam, data review, and medical decision-making, in the course for the patient. I have also personally directed the plan of care
[2018-06-07] MEDS ORDERED: Sodium Chloride 0.9% 1,000 ML IV SCH (11:15)
--- NOTE | 2018-06-07 13:08 | CP.PCM.PN ---
Subjective - Date & Time of Evaluation Date of Evaluation: 06/07/18 Time of Evaluation: 13:05 - Subjective Subjective: Podiatry progress Note: Dr. Berman: 68 year old female patient seen and evaluated in the bedside for Right Achilles tendon tear. Patient states that her right heel pain is very minimal now. Patient states that she doesn't bear any weight on her right lower extremity since yesterday. She denies any overnight fever, chills, headache, chest pain, nausea, vomiting, or any other symptoms. Patient is aware with her surgery is today. NPO status was confirmed. Objective - Vital Signs/Intake and Output Vital Signs (last 24 hours): Temp Pulse Resp BP Pulse Ox 97.7 F 77 18 114/74 97 06/07/18 06:00 06/07/18 06:00 06/07/18 06:00 06/07/18 06:00 06/07/18 06:00 Intake and Output: 06/07/18 06/07/18 06:59 18:59 Intake Total 0 Output Total 500 Balance 0 -500 - Medications Medications: Current Medications Acetaminophen (Tylenol 325mg Tab) 650 mg PO Q6H PRN PRN Reason: Pain, Mild (1-3) Atorvastatin Calcium (Lipitor) 20 mg PO DAILY [facility] Last Admin: 06/07/18 10:56 Dose: Not Given Bupropion HCl (Wellbutrin) 300 mg PO DAILY [facility] Last Admin: 06/07/18 10:56 Dose: Not Given Ezetimibe (Zetia) 10 mg PO DAILY [facility] Last Admin: 06/07/18 10:56 Dose: Not Given Enoxaparin Sodium (Lovenox) 40 mg SC DAILY [facility]; Protocol Last Admin: 06/05/18 10:17 Dose: 40 mg Sodium Chloride (Sodium Chloride 0.9%) 1,000 mls @ 70 mls/hr IV .[id number] [facility] Last Admin: 06/07/18 11:51 Dose: 70 mls/hr Insulin Human Regular (Humulin R Low) 0 units SC ACHS [facility]; Protocol Last Admin: 06/07/18 11:47 Dose: Not Given Ketorolac Tromethamine (Toradol) 15 mg IVP Q6H PRN PRN Reason: Pain, moderate (4-7) - Labs Labs: 06/07/18 07:00 06/07/18 07:00 PT 12.7 SECONDS (9.4-12.5) H 06/06/18 07:00 INR 1.12 06/06/18 07:00 APTT 29.1 Seconds (26.9-38.3) 06/06/18 07:00 - Constitutional Appears: Well, Non-toxic, No Acute Distress - Head Exam Head Exam: ATRAUMATIC, NORMOCEPHALIC - Extremities Exam Additional comments: Posterior splint C/D/I Patient able to wiggle toes NVS intact, Cap refill < 3 sec to all digits - Neurological Exam Neurological Exam: Alert, Awake, Oriented x3 - Psychiatric Exam Psychiatric exam: Normal Affect, Normal Mood Assessment and Plan - Assessment and Plan (Free Text) Assessment: 68 year old female patient seen and evaluated in the ED for Right Achilles tendon tear. Plan: Patient seen and evaluated. Plan Discussed with Dr Berman Charts, labs and vitals reviewed: Afebrile, No leukocytosis Right ankle x-rays taken; No fractures or dislocations appreciated. Right Ankle MRI: Right Achilles tendon tear. Posterior/AO splint left C/D/I Continue [id number] to the right lower extremity PT evaluation and treatment. Continue icing and elevation of the R lower extremity Continue pain management per medical team Plan for OR on Thursday at 3:00 pm for Right Achilles tendon repair with Dr. Berman - Please medically optimize patient. - NPO status confirmed - Anticoagulants on hold Podiatry will continue to follow up the patient while in house.
[2018-06-07] MEDS ORDERED: Propofol 10 mg/ml Inj (20 ML) ONE (15:18)
[2018-06-07] MEDS ORDERED: Midazolam 2 MG/2 ML VIAL ONE (15:18)
[2018-06-07] MEDS ORDERED: Rocuronium 10 mg/ml (5 ml) ONE (15:20)
[2018-06-07] MEDS ORDERED: Bupivacaine 0.5% 50 ML IJ ONE ×2 (15:23→16:49)
[2018-06-07] MEDS ORDERED: Bacitracin Ointment 30 GM TUBE ONE (15:23)
[2018-06-07] MEDS ORDERED: Dexamethasone 4 mg/1 ml ONE (15:23)
[2018-06-07] MEDS ORDERED: CeFAZolin 1 gm in NS 100ml IVPB ONE (15:57)
[2018-06-07] MEDS ORDERED: Neostigmine Methylsulfate 3mg/3ml Syringe IV ONE (17:18)
[2018-06-07] MEDS ORDERED: Morphine 4 mg/ml ISec ONE (17:22)
[2018-06-07] MEDS ORDERED: Oxycodone/Acetaminophen 5/325 mg Tab PO PRN ×2 (17:41)
--- NOTE | 2018-06-07 17:41 | PCM.SURG1 ---
Surgeon's Initial Post Op Note - Surgeon's Notes Surgeon: Dr. Berman [facility] [employer] Supervisor: Kesha Barnett PGY2, Montserrat Kimball PGY3, Madina Hayes PGY1 Type of Anesthesia: General LMA Anesthesia Administered By: Dr. Garces Pre-Operative Diagnosis: Right Achilles tendon rupture Operative Findings: See operative report. m: 2 fiberwire, 3.0mm Arthrex SutureTaks x2, 3-0 vicryl, 4-0 vicryl, 4-0 monocryl. i: 10cc 0.5% marcaine Post-Operative Diagnosis: same Operation Performed: Repair of right Achilles tendon rupture Specimen/Specimens Removed: n/a Estimated Blood Loss: EBL {In ML}: 20 Blood Products Given: N/A Drains Used: No Drains Post-Op Condition: Good Date of Surgery/Procedure: 06/07/18 Time of Surgery/Procedure: 17:40
[2018-06-07] MEDS ORDERED: HYDROmorphone 0.5 mg/0.5 ml ISec IVP PRN (17:46)
[2018-06-07] MEDS ORDERED: Lactated Ringer's 1,000 ML IV SCH (18:00)
[2018-06-07] MEDS ORDERED: Oxycodone/Acetaminophen 5/325 mg Tab ONE (18:55)
[2018-06-07 23:16] VITALS: RESP 18
[2018-06-08 07:13] LABS: BASO # 0.01 K/mm3 (0.0-2.0); BASO % 0.1 % (0.0-3.0); HEMOGLOBIN 12.5 g/dL (12.0-16.0); LYMPH # 1.7 (1.2-3.4); LYMPH % 21.1 % (22.0-35.0); MEAN CELL VOLUME 88.7 fl (80.0-105.0); MEAN CORPUSCULAR HEMOGLOBIN 28.2 pg (25.0-35.0); MEAN CORPUSCULAR HGB CONC 31.7 g/dl (31.0-37.0); MEAN PLATELET VOLUME 10.2 fl (7.0-11.0); MONO # 0.5 (0.1-0.6); MONO % 6.3 % (1.0-6.0); RBC 4.44 10^6/uL (3.5-6.1); RED CELL DISTRIBUTION WIDTH 13.2 % (11.5-14.5); WHITE BLOOD COUNT 7.8 10^3/uL (4.5-11.0)
[2018-06-08 07:30] LABS: BLOOD UREA NITROGEN 14 mg/dL (7-21); CALCIUM 8.8 mg/dL (8.4-10.5); GFR NON-AFRICAN AMERICAN > 60
--- NOTE | 2018-06-08 09:49 | CP.PCM.PN ---
Subjective - Date & Time of Evaluation Date of Evaluation: 06/08/18 Time of Evaluation: 09:45 - Subjective Subjective: PGY-1 Medicine progress note for Dr. Martinez Patient seen and examined at bedside. No acute events overnight. Patient is POD #1. She has not had a bowel movement yet but admits to having flatus. SHe is tolerating her diet without nausea or vomiting. She denies fevers, chills, shortness of breath, abdominal pain, nausea, vomiting, diarrhea, or urinary symptoms. Objective - Vital Signs/Intake and Output Vital Signs (last 24 hours): Temp Pulse Resp BP Pulse Ox 98.1 F 86 18 104/71 97 06/08/18 06:00 06/08/18 06:00 06/08/18 06:00 06/08/18 06:00 06/08/18 06:00 Intake and Output: 06/08/18 06/08/18 06:59 18:59 Intake Total 1020 Balance 1020 - Medications Medications: Current Medications Acetaminophen (Tylenol 325mg Tab) 650 mg PO Q6H PRN PRN Reason: Pain, Mild (1-3) Atorvastatin Calcium (Lipitor) 20 mg PO DAILY [facility] Last Admin: 06/07/18 10:56 Dose: Not Given Bupropion HCl (Wellbutrin) 300 mg PO DAILY [facility] Last Admin: 06/07/18 10:56 Dose: Not Given Ezetimibe (Zetia) 10 mg PO DAILY [facility] Last Admin: 06/07/18 10:56 Dose: Not Given Enoxaparin Sodium (Lovenox) 40 mg SC DAILY [facility]; Protocol Last Admin: 06/05/18 10:17 Dose: 40 mg Sodium Chloride (Sodium Chloride 0.9%) 1,000 mls @ 70 mls/hr IV .[id number] [facility] Last Admin: 06/07/18 11:51 Dose: 70 mls/hr Insulin Human Regular (Humulin R Low) 0 units SC ACHS [facility]; Protocol Last Admin: 06/07/18 17:00 Dose: Not Given Ketorolac Tromethamine (Toradol) 15 mg IVP Q6H PRN PRN Reason: Pain, moderate (4-7) Oxycodone/Acetaminophen (Percocet 5/325 Mg Tab) 1 tab PO Q6H PRN PRN Reason: Pain, moderate (4-7) Stop: 04/18/19 17:42 Last Admin: 06/07/18 18:50 Dose: 1 tab Oxycodone/Acetaminophen (Percocet 5/325 Mg Tab) 2 tab PO Q6H PRN PRN Reason: Pain, severe (8-10) Stop: 06/10/18 17:42 - Labs Labs: 06/08/18 06:45 06/08/18 06:45 PT 12.7 SECONDS (9.4-12.5) H 06/06/18 07:00 INR 1.12 06/06/18 07:00 APTT 29.1 Seconds (26.9-38.3) 06/06/18 07:00 - Additional Findings Additional findings: - Constitutional Appears: No Acute Distress - Head Exam Head Exam: NORMAL INSPECTION - Eye Exam Eye Exam: Normal appearance Pupil Exam: NORMAL ACCOMODATION - ENT Exam ENT Exam: Mucous Membranes Moist - Neck Exam Neck Exam: Normal Inspection - Respiratory Exam Respiratory Exam: Clear to Ausculation Bilateral. absent: Rales, Rhonchi, Wheezes - Cardiovascular Exam Cardiovascular Exam: RRR, +S1, +S2. absent: Gallop, Rubs, Murmur - GI/Abdominal Exam GI & Abdominal Exam: Soft. absent: Distended, Guarding, Tenderness, Rebound - Extremities Exam Additional comments: Right foot dressing C/D/I - Neurological Exam Neurological Exam: Alert, Awake, Oriented x3 - Psychiatric Exam Psychiatric exam: Normal Affect, Normal Mood - Skin Skin Exam: Dry, Intact, Normal Color, Warm Assessment and Plan - Assessment and Plan (Free Text) Assessment: Patient is a 68 year old female with a past medical history significant for DM2, HLD, HTN, and depression, presenting with right ankle pain s/p mechanical fall. Patient is POD #1 for right Achilles tendon repair. Plan: Right Achilles tendon tear s/p mechanical fall - Patient had Achilles tendon repair surgery on 06/07 - Right ankle MRI showed Achilles tendon tear measuring 2 cm and is located 3 cm above the calcaneal insertion - Right ankle xray negative - Podiatry consulted, Dr. Berman - Tylenol, Percocet, and Toradol PRN for pain - Apply ice to area, elevate right leg - Non weight bearing activity to right leg - PT evaluation Constipation - Start Colace Hyperlipidemia - Continue Zetia and Lipitor Depression - Continue home Bupropion 300mg PO QD Hx of Hypertension - Patient is normotensive - Patient states that her PMD discontinued her antihypertensive medications - Continue to monitor Prophylaxis: - Lovenox for DVT PPx - held for surgery Patient seen and case discussed with attending, Dr. Martinez. Anthony Wooten, PGY-1
[2018-06-08] MEDS: Insulin Reg-LOW-Coverage SC SCH ×4 (10:23→17:38)
--- NOTE | 2018-06-08 12:48 | CP.PCM.PN ---
Subjective - Date & Time of Evaluation Date of Evaluation: 06/08/18 Time of Evaluation: 12:45 - Subjective Subjective: Podiatry progress Note: Dr. Berman 66 year old male patient seen and evaluated in the bedside 1 day status post right Achilles tendon repair (06/07/18). Patient reports pain is minimal, and denies any other pedal complaints at this time. Patient aware that she will be transferred to a transitional care unit for further rehabilitation. She denies any overnight fever, chills, headache, chest pain, nausea, vomiting, or any other symptoms. Objective - Vital Signs/Intake and Output Vital Signs (last 24 hours): Temp Pulse Resp BP Pulse Ox 98.1 F 86 18 104/71 97 06/08/18 06:00 06/08/18 06:00 06/08/18 06:00 06/08/18 06:00 06/08/18 06:00 Intake and Output: 06/08/18 06/08/18 06:59 18:59 Intake Total 1020 420 Output Total 500 Balance 1020 -80 - Medications Medications: Current Medications Acetaminophen (Tylenol 325mg Tab) 650 mg PO Q6H PRN PRN Reason: Pain, Mild (1-3) Atorvastatin Calcium (Lipitor) 20 mg PO DAILY [facility] Last Admin: 06/08/18 10:21 Dose: 20 mg Bupropion HCl (Wellbutrin) 300 mg PO DAILY [facility] Last Admin: 06/08/18 10:22 Dose: 300 mg Docusate Sodium (Colace) 100 mg PO DAILY [facility] Last Admin: 06/08/18 10:43 Dose: 100 mg Ezetimibe (Zetia) 10 mg PO DAILY [facility] Last Admin: 06/08/18 10:24 Dose: 10 mg Enoxaparin Sodium (Lovenox) 40 mg SC DAILY [facility]; Protocol Last Admin: 06/05/18 10:17 Dose: 40 mg Sodium Chloride (Sodium Chloride 0.9%) 1,000 mls @ 70 mls/hr IV .[id number] [facility] Last Admin: 06/07/18 11:51 Dose: 70 mls/hr Insulin Human Regular (Humulin R Low) 0 units SC ACHS [facility]; Protocol Last Admin: 06/08/18 10:23 Dose: 1 units Ketorolac Tromethamine (Toradol) 15 mg IVP Q6H PRN PRN Reason: Pain, moderate (4-7) Last Admin: 06/08/18 10:23 Dose: 15 mg Metformin HCl (Glucophage) 1,000 mg PO BID [facility] Oxycodone/Acetaminophen (Percocet 5/325 Mg Tab) 1 tab PO Q6H PRN PRN Reason: Pain, moderate (4-7) Stop: 06/10/18 17:42 Last Admin: 06/07/18 18:50 Dose: 1 tab Oxycodone/Acetaminophen (Percocet 5/325 Mg Tab) 2 tab PO Q6H PRN PRN Reason: Pain, severe (8-10) Stop: 06/10/18 17:42 - Labs Labs: 06/08/18 06:45 06/08/18 06:45 PT 12.7 SECONDS (9.4-12.5) H 06/06/18 07:00 INR 1.12 06/06/18 07:00 APTT 29.1 Seconds (26.9-38.3) 06/06/18 07:00 - Constitutional Appears: Well, Non-toxic, No Acute Distress - Head Exam Head Exam: ATRAUMATIC, NORMOCEPHALIC - Extremities Exam Additional comments: Posterior splint is clean, dry and intact Capillary fill time is less than 3 seconds Patient able to wiggle his toes - Neurological Exam Neurological Exam: Alert, Awake, Oriented x3 - Psychiatric Exam Psychiatric exam: Normal Affect, Normal Mood Assessment and Plan - Assessment and Plan (Free Text) Assessment: 66 year old male patient seen and evaluated 1 day status post right achilles tendon repair (06/07/18) Plan: Patient seen and evaluated at bedside Plan Discussed with Dr Berman Charts, labs and vitals reviewed: Afebrile, No leukocytosis Right ankle x-rays taken: No fractures or dislocations appreciated Right Ankle MRI: Right Achilles tendon tear Continue ice and elevation to the R lower extremity Patient expressed verbal understanding Pain management per medical team Instructed to remain strict non-weight bearing to the left lower extremity Patient will be followed by Podiatry while in house Patient is stable for discharge to a transitional care unit/rehab facility from Podiatry standpoint Patient will follow up with Dr. Berman upon discharge
[2018-06-08 12:58] VITALS: BMI 26.3
--- NOTE | 2018-06-08 15:48 | CP.PCM.DIS ---
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 Physician Instructions: Reason For Exam: EVALUATION Time Spent in preparation of Discharge (in minutes): 45 Diagnosis - Discharge Diagnosis (1) Achilles rupture, right Status: Resolved (2) Hyperlipidemia Status: Chronic (3) Diabetes mellitus Status: Chronic (4) Depression Status: Chronic Hospital Course - Lab Results Lab Results: Most Recent Lab Values WBC 7.8 10^3/uL (4.5-11.0) D 06/08/18 06:45 RBC 4.44 10^6/uL (3.5-6.1) 06/08/18 06:45 Hgb 12.5 g/dL (12.0-16.0) 06/08/18 06:45 Hct 39.4 % (36.0-48.0) 06/08/18 06:45 MCV 88.7 fl (80.0-105.0) 06/08/18 06:45 MCH 28.2 pg (25.0-35.0) 06/08/18 06:45 MCHC 31.7 g/dl (31.0-37.0) 06/08/18 06:45 RDW 13.2 % (11.5-14.5) 06/08/18 06:45 Plt Count 262 10^3/uL (120.0-450.0) 06/08/18 06:45 MPV 10.2 fl (7.0-11.0) 06/08/18 06:45 Neut % (Auto) 72.5 % (50.0-68.0) H 06/08/18 06:45 Lymph % (Auto) 21.1 % (22.0-35.0) L 06/08/18 06:45 [place] % (Auto) 6.3 % (1.0-6.0) H 06/08/18 06:45 Eos % (Auto) 0.0 % (1.5-5.0) L 06/08/18 06:45 Baso % (Auto) 0.1 % (0.0-3.0) 06/08/18 06:45 Lymph # (Auto) 1.7 (1.2-3.4) 06/08/18 06:45 [place] # (Auto) 0.5 (0.1-0.6) 06/08/18 06:45 Eos # (Auto) 0.0 (0.0-0.7) 06/08/18 06:45 Baso # (Auto) 0.01 K/mm3 (0.0-2.0) 06/08/18 06:45 Absolute Neuts (auto) 5.66 (1.4-6.5) 06/08/18 06:45 PT 12.7 SECONDS (9.4-12.5) H 06/06/18 07:00 INR 1.12 06/06/18 07:00 APTT 29.1 Seconds (26.9-38.3) 06/06/18 07:00 Sodium 138 mmol/L (132-148) 06/08/18 06:45 Potassium 4.5 mmol/L (3.6-5.0) 06/08/18 06:45 Chloride 107 mmol/L (98-107) 06/08/18 06:45 Carbon Dioxide 24 mmol/L (21-33) 06/08/18 06:45 Anion Gap 11 (10-20) 06/08/18 06:45 BUN 14 mg/dL (7-21) 06/08/18 06:45 Creatinine 0.7 mg/dl (0.7-1.2) 06/08/18 06:45 Est GFR ( Amer) > 60 06/08/18 06:45 Est GFR (Non-Af Amer) > 60 06/08/18 06:45 POC Glucose (mg/dL) 243 mg/dL (65-110) H 06/08/18 11:25 Random Glucose 150 mg/dL (70-110) H 06/08/18 06:45 Calcium 8.8 mg/dL (8.4-10.5) 06/08/18 06:45 Phosphorus 3.9 mg/dL (2.5-4.5) 06/05/18 07:00 Magnesium 2.3 mg/dL (1.7-2.2) H 06/05/18 07:00 Total Bilirubin 0.4 mg/dL (0.2-1.3) 06/06/18 07:00 AST 22 U/L (14-36) 06/06/18 07:00 ALT 18 U/L (7-56) 06/06/18 07:00 Alkaline Phosphatase 77 U/L (38-126) 06/06/18 07:00 Total Protein 7.1 g/dL (5.8-8.3) 06/06/18 07:00 Albumin 4.1 g/dL (3.0-4.8) 06/06/18 07:00 Globulin 3.1 gm/dL 06/06/18 07:00 Albumin/Globulin Ratio 1.3 (1.1-1.8) 06/06/18 07:00 Urine Color Yellow (YELLOW) 06/07/18 04:10 Urine Appearance Clear (CLEAR) 06/07/18 04:10 Urine pH 6.0 (4.7-8.0) 06/07/18 04:10 Ur Specific [place] 1.010 (1.005-1.035) 06/07/18 04:10 Urine Protein Negative mg/dL (<30 mg/dL) 06/07/18 04:10 Urine Glucose (UA) >=1000 mg/dL (NEGATIVE) 06/07/18 04:10 Urine Ketones Negative mg/dL (NEGATIVE) 06/07/18 04:10 Urine Blood Negative (NEGATIVE) 06/07/18 04:10 Urine Nitrate Negative (NEGATIVE) 06/07/18 04:10 Urine Bilirubin Negative (NEGATIVE) 06/07/18 04:10 Urine Urobilinogen 0.2 E.U./dL (<1 E.U./dL) 06/07/18 04:10 Ur Leukocyte Esterase Negative Samir/uL (NEGATIVE) 06/07/18 04:10 Blood Type B POSITIVE 06/04/18 17:30 Blood Type Confirm B POSITIVE 06/04/18 19:00 Antibody Screen Negative 06/04/18 17:30 BBK History Checked No verified bt 06/04/18 17:30 - Hospital Course Hospital Course: Patient is a 68 year old female with a past medical history significant for DM2, HLD, HTN, and depression, presenting with right ankle pain s/p mechanical fall earlier today. Patient reports she was carrying bags of groceries when she tripped over her foot and fell backwards. Patient reports to feeling a "pop" on her right ankle one day prior. Right ankle MRI showed Achilles tendon tear measuring 2 cm and is located 3 cm above the calcaneal insertion. Right ankle xray negative. Podiatry (Dr. Berman) was consulted and performed a right Achilles tendon repair on 06/07. Physical therapy evaluated the patient and recommended that patient go to subacute rehab. Patient was instructed to hold home medication, Invokana due to side effects such as bone density loss and fractures. She was instructed to resume all other home medications. She was instructed to follow up with her PMD and podiatry after discharge from subacute rehab. Patient is medically stable for discharge to subacute rehab. Discharge Exam - Additional Findings Additional findings: Additional findings: - Constitutional Appears: No Acute Distress - Head Exam Head Exam: NORMAL INSPECTION - Eye Exam Eye Exam: Normal appearance Pupil Exam: NORMAL ACCOMODATION - ENT Exam ENT Exam: Mucous Membranes Moist - Neck Exam Neck Exam: Normal Inspection - Respiratory Exam Respiratory Exam: Clear to Ausculation Bilateral. absent: Rales, Rhonchi, Wheezes - Cardiovascular Exam Cardiovascular Exam: RRR, +S1, +S2. absent: Gallop, Rubs, Murmur - GI/Abdominal Exam GI & Abdominal Exam: Soft. absent: Distended, Guarding, Tenderness, Rebound - Extremities Exam Additional comments: Right foot dressing C/D/I - Neurological Exam Neurological Exam: Alert, Awake, Oriented x3 - Psychiatric Exam Psychiatric exam: Normal Affect, Normal Mood - Skin Skin Exam: Dry, Intact, Normal Color, Warm Discharge Plan - Follow Up Plan Condition: STABLE Disposition: REHAB FACILITY/REHAB UNIT Instructions: Preventing Falls in the Older Adult, Carbohydrate Counting Diet, Achilles Tendon Rupture (DC) Additional Instructions: - Hold your home medication, Invokana due to side effects such as bone density loss and fractures. Please discuss with your primary care doctor regarding continuing this medication. - You may take Tylenol or Motrin for pain as needed. - Resume all other home medications as prescribed by your doctor. - Please follow-up with your Primary care doctor, Dr. Mitchell, within 7 days of discharge so he may be aware of this hospital stay. - Please follow-up with podiatry, Dr. Berman, within 7 days of discharge for continued foot care. - If symptoms return please promptly go to the nearest emergency department Referrals: Rolo Berman MD [Doctor Podiatric Medicine] - Paula-Franny Burns MD [Primary Care Provider] - <Leo Martinez - Last Filed: 06/09/18 07:46> Provider - Provider Date of Admission: 06/04/18 14:27 Attending physician: Leo Martinez MD Primary care physician: Franny Mitchell MD Consults: 06/04/18 14:28 Podiatry Consult Routine Comment: Consulting Provider: Rolo Berman Consulting Physician: Rolo Berman Reason for Consult: Achilles rupture tear 06/04/18 20:06 Case Management Referral Routine Comment: NEEDS ASSISTANCE AT HOME, LIVES ALONE Physician Instructions: Reason For Exam: EVALUATION 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 Physician Instructions: Reason For Exam: EVALUATION Hospital Course - Lab Results Lab Results: Most Recent Lab Values WBC 7.8 10^3/uL (4.5-11.0) D 06/08/18 06:45 RBC 4.44 10^6/uL (3.5-6.1) 06/08/18 06:45 Hgb 12.5 g/dL (12.0-16.0) 06/08/18 06:45 Hct 39.4 % (36.0-48.0) 06/08/18 06:45 MCV 88.7 fl (80.0-105.0) 06/08/18 06:45 MCH 28.2 pg (25.0-35.0) 06/08/18 06:45 MCHC 31.7 g/dl (31.0-37.0) 06/08/18 06:45 RDW 13.2 % (11.5-14.5) 06/08/18 06:45 Plt Count 262 10^3/uL (120.0-450.0) 06/08/18 06:45 MPV 10.2 fl (7.0-11.0) 06/08/18 06:45 Neut % (Auto) 72.5 % (50.0-68.0) H 06/08/18 06:45 Lymph % (Auto) 21.1 % (22.0-35.0) L 06/08/18 06:45 [place] % (Auto) 6.3 % (1.0-6.0) H 06/08/18 06:45 Eos % (Auto) 0.0 % (1.5-5.0) L 06/08/18 06:45 Baso % (Auto) 0.1 % (0.0-3.0) 06/08/18 06:45 Lymph # (Auto) 1.7 (1.2-3.4) 06/08/18 06:45 [place] # (Auto) 0.5 (0.1-0.6) 06/08/18 06:45 Eos # (Auto) 0.0 (0.0-0.7) 06/08/18 06:45 Baso # (Auto) 0.01 K/mm3 (0.0-2.0) 06/08/18 06:45 Absolute Neuts (auto) 5.66 (1.4-6.5) 06/08/18 06:45 PT 12.7 SECONDS (9.4-12.5) H 06/06/18 07:00 INR 1.12 06/06/18 07:00 APTT 29.1 Seconds (26.9-38.3) 06/06/18 07:00 Sodium 138 mmol/L (132-148) 06/08/18 06:45 Potassium 4.5 mmol/L (3.6-5.0) 06/08/18 06:45 Chloride 107 mmol/L (98-107) 06/08/18 06:45 Carbon Dioxide 24 mmol/L (21-33) 06/08/18 06:45 Anion Gap 11 (10-20) 06/08/18 06:45 BUN 14 mg/dL (7-21) 06/08/18 06:45 Creatinine 0.7 mg/dl (0.7-1.2) 06/08/18 06:45 Est GFR ( Amer) > 60 06/08/18 06:45 Est GFR (Non-Af Amer) > 60 06/08/18 06:45 POC Glucose (mg/dL) 112 mg/dL (65-110) H 06/08/18 16:17 Random Glucose 150 mg/dL (70-110) H 06/08/18 06:45 Calcium 8.8 mg/dL (8.4-10.5) 06/08/18 06:45 Phosphorus 3.9 mg/dL (2.5-4.5) 06/05/18 07:00 Magnesium 2.3 mg/dL (1.7-2.2) H 06/05/18 07:00 Total Bilirubin 0.4 mg/dL (0.2-1.3) 06/06/18 07:00 AST 22 U/L (14-36) 06/06/18 07:00 ALT 18 U/L (7-56) 06/06/18 07:00 Alkaline Phosphatase 77 U/L (38-126) 06/06/18 07:00 Total Protein 7.1 g/dL (5.8-8.3) 06/06/18 07:00 Albumin 4.1 g/dL (3.0-4.8) 06/06/18 07:00 Globulin 3.1 gm/dL 06/06/18 07:00 Albumin/Globulin Ratio 1.3 (1.1-1.8) 06/06/18 07:00 Urine Color Yellow (YELLOW) 06/07/18 04:10 Urine Appearance Clear (CLEAR) 06/07/18 04:10 Urine pH 6.0 (4.7-8.0) 06/07/18 04:10 Ur Specific [place] 1.010 (1.005-1.035) 06/07/18 04:10 Urine Protein Negative mg/dL (<30 mg/dL) 06/07/18 04:10 Urine Glucose (UA) >=1000 mg/dL (NEGATIVE) 06/07/18 04:10 Urine Ketones Negative mg/dL (NEGATIVE) 06/07/18 04:10 Urine Blood Negative (NEGATIVE) 06/07/18 04:10 Urine Nitrate Negative (NEGATIVE) 06/07/18 04:10 Urine Bilirubin Negative (NEGATIVE) 06/07/18 04:10 Urine Urobilinogen 0.2 E.U./dL (<1 E.U./dL) 06/07/18 04:10 Ur Leukocyte Esterase Negative Samir/uL (NEGATIVE) 06/07/18 04:10 Blood Type B POSITIVE 06/04/18 17:30 Blood Type Confirm B POSITIVE 06/04/18 19:00 Antibody Screen Negative 06/04/18 17:30 BBK History Checked No verified bt 06/04/18 17:30 Attending/Attestation - Attestation I have personally seen and examined this patient.: Yes I have fully participated in the care of the patient.: Yes I have reviewed all pertinent clinical information, including history, physical exam and plan: Yes Notes (Text): 06/09/18 07:41 Medical record note made by the resident after discussion with my direction and input after the patient was personally seen and examined by me. I have reviewed the chart and agree that the record accurately reflects by personal performance of the history, physical exam, data review, and medical decision-making, in the course for the patient. I have also personally directed the plan of care. 68 year old female with PMH of diabetes, hypertension and dyslipidemia who presented with complaint of right ankle pain s/p mechanical fall. Right ankle xray was negative but right ankle MRI showed Achilles tendon tear (2cm in length located 3 cm above the calcaneal insertion). Patient was evalauted by Podiatry and underwent repair on 06/07/18. Patient remain stable after surgery. PT evaluation; non-weight bearing activity to right leg and BRENDA. Patient will be discharged to [facility]. Patient diabetic medications were adjusted at the time of discharge.Blood sugars need to be monitored in [facility] and medications may need to be adjusted. Management plan was discussed in detail with patient. Education was provided. 06/09/18 07:45
[2018-06-08 17:31] VITALS: BP 93/60; PULSE 88; TEMP 99.1; O2SAT 98
--- NOTE | 2018-06-10 12:01 | PCM.OP ---
Operative Report - Operative Report Date of Surgery/Procedure: 06/07/18 Time of Surgery/Procedure: 17:38 Surgeon: Dr. Berman Parimutuel Ticket Cashier: Kesha Barnett PGY2, Montserrat Kimball PGY3, Madina Hayes PGY1 Anesthesia/Sedation: General LMA Pre-Operative Diagnosis: Right Achilles tendon rupture Post-Operative Diagnosis: Same as above Indication for Surgery: Patient is a 68 year old female with the above mentioned diagnosis. Patient sustained an Achilles rupture s/p mechanical fall on 06/04/18 and [place] [facility] [place] After extensive discussion of conservative versus surgical treatment options including associated risks, benefits, complications to treatment options, patient agreed to proceed with surgical intervention. Patient signed the consent after careful explanation of procedure and post- operative course. No guarantees were given nor implied. Operative Findings: See procedure description Procedure/Operation Description: Patient was brought into the operating room and placed on the operating room table in a supine position. Time-out was performed for identification of the correct patient and procedure. A well-padded thigh tourniquet was placed onto the patient's right lower extremity. After the induction of General LMA, the right foot was then prepped and draped in normal sterile manner. An Esmarch was used to exsanguinate the limb, the tourniquet was inflated to 350mmHg, and the procedure began. Attention was directed to the posterior aspect of the patient's right lower extremity where a linear longitudinal incision was made approximately 6 cm from the superior aspect of the calcaneus extending down to the Achilles insertion point. The incision was carried deep through subcutaneous tissue, with care being taken to identify and retract all vital neurovascular structures. All bleeders were ligated and cauterized as necessary. Following deep dissection, the Achilles tendon was identified and was noted to have a complete rupture of the tendon approximately 3 cm proximal to the insertion point with a gap of approximately 2 cm. Two 3.0mm Arthrex SutureTaks were inserted into the posterosuperior aspect of the calcaneus following AO principles and technique, and the attached fiberwire was sutures through the distal and proximal ends of the Achilles tendon in a figure eight type fashion. Following this, the two ends were fully reapproximated and were sutured together. The Achilles was gently moved through range of motion with appropriate tension noted. Following this, Arthrex Arthroflex graft was placed around the Achilles tendon at the approximation site and sutured onto the tendon using 3-0 vicryl. The wound was then flushed with copious amounts of sterile saline. Approximately 5cc of autologous PRP was then injected into the repair site. Paratenon was reapproximated using 3-0 vicryl; subcutaneous tissue was reapproximated using 4- 0 vicryl, and skin was reapproximated using 4-0 monocryl. The surgical site was then dressed with saline soaked gauze and a dry sterile dressing. Post-operative injection included 10cc of 0.5% marcaine. Estimated Blood Loss: 1cc Complications: None Discharge & Condition: Patient was escorted to the recovery room with vital signs stable and neurovascular status intact to the right lower extremity.
== END 2018-06-08 20:52 | DRG 502 ==
LOC: ED 11:58 → ERH 14:27 → 5RNO 16:42
PROVIDERS: ADMIT Internal Medicine; ATTEND Internal Medicine
PROC: 0LQN0ZZ Repair Right Lower Leg Tendon, Open Approach (ICD-10-PCS; principal; 2018-06-07 15:00)
DX: S86.011A Strain of right Achilles tendon, initial encounter (principal); I10 Essential (primary) hypertension; E11.9 Type 2 diabetes mellitus without complications; E78.5 Hyperlipidemia, unspecified; F32.9 Major depressive disorder, single episode, unspecified; W01.0XXA Fall on same level from slipping, tripping and stumbling without subsequent striking against object, initial encounter